=== PATIENT | male | born 1990 | race Caucasian/White ===

== ENCOUNTER 2016-04-20 18:03 | Inpatient (IN) | payer OTHER ==
[~2016-04-20] VITALS: Ht 172.7 cm; Wt 96.5 kg
[2016-04-20 19:09] LABS: MEAN CORPUSCULAR HEMOGLOBIN 28.7 pg (27.0-33.0); MEAN CORPUSCULAR HGB CONC 34.3 g/dl (32.0-36.5); MEAN CORPUSCULAR VOLUME 83.6 fl (80.0-96.0); RED CELL DISTRIBUTION WIDTH 12.7 % (11.5-14.5)
[2016-04-20 19:16] LABS: AMPHETAMINES LEVEL URINE NEGATIVE (NEGATIVE); BENZODIAZEPINES URINE NEGATIVE (NEGATIVE); COCAINE METABOLITE URINE NEGATIVE (NEGATIVE); CONTROL LINE INT CTR LINE PRESENT; METHADONE URINE NEGATIVE (NEGATIVE); OPIATES URINE NEGATIVE (NEGATIVE); TRICYCLIC ANTIDEPRESS URINE NEGATIVE (NEGATIVE)
[2016-04-20 19:33] LABS: ALBUMIN 4.5 GM/DL (3.2-5.2); ALBUMIN/GLOBULIN RATIO 1.36 (1.00-1.93); ALKALINE PHOSPHATASE 84 U/L (45-117); ALT/SGPT 80 U/L (12-78); ANION GAP 10 MEQ/L (8-16); AST/SGOT 29 U/L (15-37); BILIRUBIN,DIRECT 0.1 MG/DL (0.0-0.2); BILIRUBIN,TOTAL 0.3 MG/DL (0.2-1.0); BLOOD UREA NITROGEN 8 MG/DL (7-18); CALCIUM LEVEL 9.2 MG/DL (8.5-10.1); CARBON DIOXIDE LEVEL 27 MEQ/L (21-32); CHLORIDE LEVEL 105 MEQ/L (98-107); CREATININE FOR GFR 1.03 MG/DL (0.70-1.30); GLOMERULAR FILTRATION RATE > 60.0 (>60); GLUCOSE, FASTING 96 MG/DL (70-105); POTASSIUM SERUM 3.8 MEQ/L (3.5-5.1); SODIUM LEVEL 142 MEQ/L (136-145); TOTAL PROTEIN 7.8 GM/DL (6.4-8.2)
[2016-04-20] MEDS ORDERED: CELE20TA PO (21:12)
[2016-04-20] MEDS ORDERED: VITA1CHW10 PO (21:12)
[2016-04-20] MEDS ORDERED: MOM 30ML SUSPENSION UDC PO PRN (21:15)
[2016-04-20] MEDS ORDERED: ACETAMINOPHEN TAB 650MG DOSE (2X325MG) PO PRN (21:15)
[2016-04-20] MEDS ORDERED: traZODone 50 MG TAB PO PRN (21:15)
[2016-04-20] MEDS ORDERED: MAALOX 30 ML SUSP *UDC PO PRN (21:15)
--- NOTE | 2016-04-20 23:06 | EDDOCDS ---
Physician Documentation [facility] Name: Wesley Wilson Age: 26 yrs Sex: Male : 1990 Arrival Date: 04/20/2016 Time: 18:03 Bed BHU1 Private MD: Javier Carrion Disposition: 04/20/16 20:07 Hospitalization ordered by Benedicto Burden for Inpatient Admission. Preliminary diagnosis are Adjustment disorder with mixed anxiety and depressed mood, Suicidal ideations. - Bed requested for Admit. - Status is Inpatient Admission. rw1 - Condition is Stable. - Problem is an ongoing problem. - Symptoms are unchanged. Historical: - Allergies: No known drug Allergies; - Home Meds: 1. Celexa 20 mg Oral tab 1 tab once daily 2. Flomax 0.4 mg Oral cp24 1 cap once daily has not taken in awhile - PMHx: Anxiety; Depression; Urethral stricture; - PSHx: none; - Social history: Smoking status: Electronic cigarettes Patient uses street drugs, marijuana, prescription pills, No barriers to communication noted, The patient speaks fluent Maltese. - Family history: Not pertinent. - : The pt / caregiver states he / she is not on anticoagulants. Home medication list is obtained from the patient. - Exposure Risk Screening:: None identified. Vital Signs: 04/20 18:05 BP 149 / 84; Pulse 103; Resp 18 S; Temp 98.9(O); Pulse Ox 98% on R/A; Weight 99.79 kg / gr2 220 lbs (R); Height 5 ft. 8 in. (172.72 cm) (R); Pain 2/10; 23:02 BP 146 / 85; Pulse 67; Resp 16; Temp 97.1(T); Pulse Ox 97% on R/A; Pain 0/10; rw1 18:05 Body Mass Index 33.45 (99.79 kg, 172.72 cm) gr2 MDM: 18:26 Consult PFS/PSA/Yacht Captain ordered. ml6 18:26 Consult PFS/PSA/Yacht Captain: Patient's case requires discussion with on-call ml6 Psychiatrist ordered. 18:26 PSA/PFS to call Nursing Resistor Tester, to enter patient data on [place] Safe Act if patient ml6 involuntarily admitted or transferred for SI or HI ordered. 18:26 Confirm accurate psychiatric medication list and times of last dosage ordered. ml6 18:26 Detain Pt Until Medically/PFS Cleared ordered. ml6 18:26 Acetaminophen Level Ordered. EDMS 18:26 Basic Metabolic Profile Ordered. EDMS 18:26 Complete Blood Count Ordered. EDMS 18:26 Drug Eval Toxicology ED Only Ordered. EDMS 18:26 Ethyl Alcohol (ethanol) Ordered. EDMS 18:26 Liver Profile Ordered. EDMS 18:26 Salicylate Level Ordered. EDMS 18:26 Thyroid Stimulating Hormone Ordered. EDMS 19:58 Acetaminophen Level Reviewed. ke 19:58 Complete Blood Count Reviewed. ke 19:58 Drug Eval Toxicology ED Only Reviewed. ke 19:58 Liver Profile Reviewed. ke 19:58 Salicylate Level Reviewed. ke 19:58 Basic Metabolic Profile Reviewed. ke 19:58 Ethyl Alcohol (ethanol) Reviewed. ke 19:58 Thyroid Stimulating Hormone Reviewed. ke 20:04 BED REQUEST+ADM ordered. EDMS 20:52 Financial registration complete. zo 20:54 Consult PFS/PSA/Yacht Captain complete. jfb 20:54 Consult PFS/PSA/Yacht Captain: Patient's case requires discussion with on-call jfb Psychiatrist complete. 20:54 PSA/PFS to call Nursing Resistor Tester, to enter patient data [place] Safe [place] if patient jfb involuntarily admitted or transferred for SI or HI complete. 21:09 Admit to IMHU: ordered. EDMS 21:09 REGULAR DIET ordered. EDMS 21:52 [facility] Legal paperwork was scanned into [employer] and attached to record. jl 22:13 [facility] [place] Agreement was scanned into [employer] and attached to record. zo 22:21 [facility] Legal paperwork was scanned into [employer] and attached to record. jl Signatures: Dispatcher [employer] Debra Garg, RN RN Yoel Ruff PSA PSA jl Elsner, Karl, DIRECT MAIL CLERK DIRECT MAIL CLERK Arden Ferrari,LOCKER ATTENDANT LOCKER ATTENDANT rw1 Driss Ruiz Matthew, RN RN ml6 Joi West, JAMES alarcon The chart was reviewed and I authenticate all verbal orders and agree with the evaluation and treatment provided.Attachments: 22:13 [facility] [place] Agreement zo MTDD
--- NOTE | 2016-04-20 23:06 | EDDOCDS ---
Nurse's Notes [facility] Name: Wesley Wilson Age: 26 yrs Sex: Male : 1990 Arrival Date: 04/20/2016 Time: 18:03 Bed [facility] Private MD: Javier Carrion Diagnosis: Adjustment disorder with mixed anxiety and depressed mood;Suicidal ideations Presentation: 04/20 18:17 Presenting complaint: Patient states: since January he has been in and out of feeling kcs anxious and depressed. Has numerous suicidal ideations. Gets frustrated with others and has homicidal ideations but then turns the frustration back on himself. Mental Health Triage Level: Level 2: The patient displays active suicidal ideations. The patient displays active homicidal ideations. Adult Sepsis Screening: The patient does not have new or worsening altered mentation. Patient's respiratory rate is less than 22. Systolic blood pressure is greater than 100. Patient has a qSOFA score of 0- Negative Sepsis Screen. Suicide/Homicide risk assessment- The patient admits to and/or has been reported to be having suicidal ideations. The patient admits to and/or has been reported to be having homicidal ideations. The patient reports that he/she has not been admitted to an inpatient mental health facility in the last 30 days. The patient reports that he/she has a recent or current history of substance abuse. The patient reports that he/she has a prior history of suicide attempt and/or organized plan. The patient reports that he/she has not experienced a significant life altering event in the last 30 days. The patient reports that he/she has adequate social support. The patient reports he/she has significant chronic medical condition(s). Status: Patient is not a human services care specialist or dependent. Transition of care: patient was not received from another setting of care. Red Flag criteria, patient assessed and taken directly to a bed. 18:17 Acuity: BRITTA Level 3 kcs 18:17 Method Of Arrival: Walkin/Carried/Asstd kcs Triage Assessment: 18:20 General: Appears comfortable, well developed, well nourished, well groomed, Behavior is kcs cooperative, flat, pleasant, good eye contact. Pain: Denies pain. Pt Declines HIV testing. The patient is triaged at the bedside. See Assessment in Nurses Notes section of ED record. Neurological: Level of Consciousness is awake, alert. Respiratory: Airway is patent Respiratory effort is even, unlabored, Respiratory pattern is regular, symmetrical. Derm: Skin is intact, is healthy with good turgor, Skin is dry, Skin is normal. 18:23 General: does have chronic back and leg pain - also has pain in fingertips when he kcs tries to turn something like a doorknob. Historical: - Allergies: No known drug Allergies; - Home Meds: 1. Celexa 20 mg Oral tab 1 tab once daily 2. Flomax 0.4 mg Oral cp24 1 cap once daily has not taken in awhile - PMHx: Anxiety; Depression; Urethral stricture; - PSHx: none; - Social history: Smoking status: Electronic cigarettes Patient uses street drugs, marijuana, prescription pills, No barriers to communication noted, The patient speaks fluent Wallisian. - Family history: Not pertinent. - : The pt / caregiver states he / she is not on anticoagulants. Home medication list is obtained from the patient. - Exposure Risk Screening:: None identified. Screenin:02 Screening information is obtained from the patient. Fall risk: No risks identified. rw1 Assistance ADL's: requires no assistance with activities of daily living. Abuse/DV Screen: The patient / caregiver reports he/she is: not in a situation that causes fear, pain or injury. Nutritional screening: No deficits noted. Advance Directives: Currently, there is no health care proxy. home support is adequate. Assessment: 18:20 General: see triage assessment. rw1 19:20 General: Appears in no apparent distress, comfortable, Behavior is appropriate for age, rw1 cooperative. Neurological: Level of Consciousness is awake, alert, obeys commands, Oriented to person, place, time. Respiratory: Airway is patent Respiratory effort is even, unlabored. Derm: Skin is pink, warm & dry. normal. 20:10 Reassessment: Patient appears in no apparent distress at this time. awake resting on rw1 stretcher talking to family. Safety maintained will continue to monitor.. 21:04 Reassessment: Patient appears in no apparent distress at this time. continues resting rw1 on stretcher talking to family. Safety maintained will continue to monitor.. 22:00 General: Appears in no apparent distress, comfortable, Behavior is appropriate for age, rw1 cooperative, pleasant. Pain: Denies pain. Neurological: Level of Consciousness is awake, alert, obeys commands, Oriented to person, place, time. Respiratory: Airway is patent Respiratory effort is even, unlabored. Derm: Skin is pink, warm & dry. normal. 22:51 Reassessment: Patient appears in no apparent distress at this time. resting quietly on rw1 stretcher, safety maintained will monitor.. Mental Health Eval: 20:57 Status: The patient is not a human services care specialist or dependent. [facility]: The patient is not an established patient of [facility]. Referral Information: Evaluation referral is generated by the patient himself / herself. The patient was referred for evaluation because PT has been experiencing SI . Subjective: The patients chief complaint is PT states that he has been told for years that he may have Bipolar but he would become defensive. He currently feels that he may in fact have that condition and is concerned if he doesn't address it may harm himself. PT states since January 2016 he has noticed significant increase with his symptoms to include interrupted sleep, racing thoughts, mood swings to include anger, isolating and self sabotaging. PT states that he has avoided getting help as he was concerned about who would care for his 2 year old dog but his family has now offered to help. 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 I love that job" Last PT states was a very difficult day and he fought the desire to OD "for relief". PT is concerned that if he doesn't get help "something bad might happen". Delusions are denied. Patient's mood is anxious, hallucinations are states he will occasionally see shadows. Mental Health history: anxiety, depression, sleep disturbance, suicide attempt by PT states he has had multiple unreported suicide attempts in his lie time. He can remember putting a belt around his neck and frequent OD. Mental Health Admissions: None. Current Outpatient Mental Health Services: None. Current living environment is The patient currently lives with a family that assumed custody of him when he was 18. He feels the house is not stable and if he could find an affordable place that will accept his dog he would move.. Patient presents to Emergency Department with the following symptoms within the past 2 weeks: antisocial behavior, anxiety, erratic appetite depressed mood, hyperactivity, labile mood, panic attacks, poor concentration, sleep disturbance - erratic suicidal ideation with plan for pills. Substance abuse: Patient uses marijuana daily quit smoking two years ago and utilizes an E-cig. Mental status exam: Patients appearance is appropriate, Patient's behavior is cooperative, Speech is normal. Affect is appropriate. Mood is anxious. Hallucinations are denied. Appetite is erratic Memory is good. Energy level is normal. Content of thought is depressive. concerned for his future Thought process is intact. Cognitive level is oriented to person, place, time and situation Patient's insight is fair. Judgement is fair. Rapport with interviewer is good. Suicidal Ideation is denied. Homicidal ideation is denied. Disposition: Medically cleared for disposition by Heriberto RACHEL Psychiatric Consult is performed by phone with Dr Benedicto Burden MD. [facility] Admission Criteria: The patient is experiencing suicidal ideation. The patient requires continuous observation and/or control to protect self, others or property. The patient's care requires a multi-modal treatment plan under close supervision and coordination due to the complexity and severity of the patient's symptoms. Legal Status: Patient's legal status will be Emergency admission: 9.39. [place] Safe Act: [place] Safe Act is applicable to this patient. The patient poses a risk to self or other and the Nursing Carrier Driver has been notified. He/She will enter the patient's data. DSM-V Differential Diagnosis: Unspecified Depressive Disorder (F32.9). Awaiting: transfer to [facility]. Vital Signs: 18:05 BP 149 / 84; Pulse 103; Resp 18 S; Temp 98.9(O); Pulse Ox 98% on R/A; Weight 99.79 kg gr2 (R); Height 5 ft. 8 in. (172.72 cm) (R); Pain 2/10; 23:02 BP 146 / 85; Pulse 67; Resp 16; Temp 97.1(T); Pulse Ox 97% on R/A; Pain 0/10; rw1 18:05 Body Mass Index 33.45 (99.79 kg, 172.72 cm) gr2 Vitals: 18:05 Log In Time: April 20, 2016 at 18:05. RN notified that patient meets Red Flag gr2 criteria. ED Course: 18:05 Patient visited by Meche Fermin. gr2 18:05 Javier Carrion is Private Physician. gr2 18:05 Patient moved to Waiting gr2 18:07 Patient visited by Meche Fermin. gr2 18:07 Patient moved to [facility] kcs 18:19 Triage Initiated kcs 18:38 Patient visited by Narinder Arriaga. dpm 18:53 Patient visited by Narinder Arriaga. dpm 19:07 Patient visited by Narinder Arriaga. dpm 19:15 Patient visited by Narinder Arriaga. dpm 19:28 Patient visited by Mike Camargo. tr 19:37 Heriberto Barry FNP is PHCP. ke 19:37 Patient visited by Heriberto Barry FNP. ke 19:37 Patient visited by Heriberto Barry FNP. ke 19:47 Patient visited by Mike Camargo. tr 19:54 Arden Gonzalez LPN is Primary Nurse. rw1 20:03 Benedicto Burden MD is Hospitalizing Provider. ke 20:13 Patient visited by Mike Camargo. tr 20:47 Patient visited by Mike Camargo. tr 21:43 Patient visited by Mike Camargo. tr 21:52 E Legal paperwork was scanned into [employer] and attached to record. jl 21:59 Patient visited by Mike Camargo. tr 22:13 [facility] Payment Agreement was scanned into [employer] and attached to record. zo 22:14 Patient visited by Mike Camargo. tr 22:21 E Legal paperwork was scanned into [employer] and attached to record. jl 22:34 Patient visited by Mike Camargo. tr 22:44 Patient visited by Mike Camargo. tr 22:59 Patient visited by Mike Camargo. tr 23:02 The patient / caregiver is instructed regarding the plan of care and ED course. rw1 23:02 No IV's were initiated during this patient's visit. No procedures done that require rw1 assistance. Attachments: 22:21 [facility] Legal paperwork jl Order Results: Lab Order: Acetaminophen Level; SPEC'M 04/20/16 18:37 Test: ACETAMINOPHEN LEVEL; Value: < 2.0; Range: 10.0-30.0; Abnormal: Below low normal; Units: UG/ML; Status: F Lab Order: Basic Metabolic Profile; [facility] 04/20/16 18:37 Test: GLUCOSE, FASTING; Value: 96; Range: 70-105; Units: MG/DL; Status: F Test: BLOOD UREA NITROGEN; Value: 8; Range: 7-18; Units: MG/DL; Status: F Test: CREATININE FOR GFR; Value: 1.03; Range: 0.70-1.30; Units: MG/DL; Status: F Test: GLOMERULAR FILTRATION RATE; Value: > 60.0; Range: >60; Status: F Test: SODIUM LEVEL; Value: 142; Range: 136-145; Units: MEQ/L; Status: F Test: POTASSIUM SERUM; Value: 3.8; Range: 3.5-5.1; Units: MEQ/L; Status: F Test: CHLORIDE LEVEL; Value: 105; Range: 98-107; Units: MEQ/L; Status: F Test: CARBON DIOXIDE LEVEL; Value: 27; Range: 21-32; Units: MEQ/L; Status: F Test: ANION GAP; Value: 10; Range: 8-16; Units: MEQ/L; Status: F Test: CALCIUM LEVEL; Value: 9.2; Range: 8.5-10.1; Units: MG/DL; Status: F Test Note: ; Units are mL/min/1.73 m2 Chronic Kidney Disease Staging per NKF: Stage I & II GFR >=60 Normal to Mildly Decreased Stage III GFR 30-59 Moderately Decreased Stage IV GFR 15-29 Severely Decreased Stage V GFR <15 Very Little GFR Left ESRD GFR <15 on MONTESS[employer]I LEAD TEACHER Lab Order: Complete Blood Count; [facility] 04/20/16 18:37 Test: WHITE BLOOD COUNT; Value: 9.0; Range: 4.0-10.0; Units: K/mm3; Status: F Test: RED BLOOD COUNT; Value: 5.46; Range: 4.30-6.10; Units: M/mm3; Status: F Test: HEMOGLOBIN; Value: 15.7; Range: 14.0-18.0; Units: g/dl; Status: F Test: HEMATOCRIT; Value: 45.7; Range: 42.0-52.0; Units: %; Status: F Test: MEAN CORPUSCULAR VOLUME; Value: 83.6; Range: 80.0-96.0; Units: fl; Status: F Test: MEAN CORPUSCULAR HEMOGLOBIN; Value: 28.7; Range: 27.0-33.0; Units: pg; Status: F Test: MEAN CORPUSCULAR HGB CONC; Value: 34.3; Range: 32.0-36.5; Units: g/dl; Status: F Test: RED CELL DISTRIBUTION WIDTH; Value: 12.7; Range: 11.5-14.5; Units: %; Status: F Test: PLATELET COUNT, AUTOMATED; Value: 468; Range: 150-450; Abnormal: Above high normal; Units: k/mm3; Status: F Lab Order: Drug Eval Toxicology ED Only; SPEC'M 04/20/16 18:37 Test: AMPHETAMINES LEVEL URINE; Value: NEGATIVE; Range: NEGATIVE; Status: F Test: BARBITURATES URINE; Value: NEGATIVE; Range: NEGATIVE; Status: F Test: BENZODIAZEPINES URINE; Value: NEGATIVE; Range: NEGATIVE; Status: F Test: CANNABINOIDS URINE; Value: POSITIVE; Range: NEGATIVE; Abnormal: Above high normal; Status: F Test: COCAINE METABOLITE URINE; Value: NEGATIVE; Range: NEGATIVE; Status: F Test: METHADONE URINE; Value: NEGATIVE; Range: NEGATIVE; Status: F Test: OPIATES URINE; Value: NEGATIVE; Range: NEGATIVE; Status: F Test: TRICYCLIC ANTIDEPRESS URINE; Value: NEGATIVE; Range: NEGATIVE; Status: F Test Note: ; FALSE POSITIVE RESULTS CAN BE CAUSED BY THE USE OF PANTOPRAZOLE (PROTONIX). Lab Order: Ethyl Alcohol (ethanol); SPEC'M 04/20/16 18:37 Test: ETHYL ALCOHOL (ETHANOL); Value: < 0.003; Range: 0.000-0.010; Units: %; Status: F Lab Order: Liver Profile; SPEC'M 04/20/16 18:37 Test: AST/SGOT; Value: 29; Range: 15-37; Units: U/L; Status: F Test: ALT/SGPT; Value: 80; Range: 12-78; Abnormal: Above high normal; Units: U/L; Status: F Test: ALKALINE PHOSPHATASE; Value: 84; Range: 45-117; Units: U/L; Status: F Test: BILIRUBIN,TOTAL; Value: 0.3; Range: 0.2-1.0; Units: MG/DL; Status: F Test: BILIRUBIN,DIRECT; Value: 0.1; Range: 0.0-0.2; Units: MG/DL; Status: F Test: TOTAL PROTEIN; Value: 7.8; Range: 6.4-8.2; Units: GM/DL; Status: F Test: ALBUMIN; Value: 4.5; Range: 3.2-5.2; Units: GM/DL; Status: F Test: ALBUMIN/GLOBULIN RATIO; Value: 1.36; Range: 1.00-1.93; Status: F Lab Order: Salicylate Level; SPEC'M 04/20/16 18:37 Test: SALICYLATE LEVEL; Value: < 1.7; Range: 5.0-30.0; Abnormal: Below low normal; Units: MG/DL; Status: F Lab Order: Thyroid Stimulating Hormone; SPEC'M 04/20/16 18:37 Test: THYROID STIMULATING HORMONE; Value: 1.150; Range: 0.358-3.740; Units: uIU/ML; Status: F Outcome: 20:07 Decision to Hospitalize by Provider. ke 23:02 Discharge Assessment: Patient awake, alert and oriented x 3. No cognitive and/or rw1 functional deficits noted. Patient verbalized understanding of disposition instructions. patient administered narcotics - no. The following High Risk Discharge criteria are identified: Admitted to Psych accompanied by tech, via wheelchair, with chart. Condition: stable. No special radiology studies were completed. Property removed, inventory done, secured in belongings bag- given to [facility] staff. 23:05 Patient left the ED. rw1 Signatures: Debra Nicholas, RN RN Yoel Ruff PSA PSA jl Rasmussen, Tim tr Elsner, Karl, YARN FINISHER YARN FINISHER Arden Ferrari,SERVICE PERSON SERVICE PERSON rw1 Driss Ruiz Julie, PSA PSA jfb Marolf, Dustin dpm Raymond, Gainslee gr2 MTDD
[2016-04-20 23:23] VITALS: BP 143/88
[2016-04-21 06:00] VITALS: BP 114/59
[2016-04-21] MEDS ORDERED: CitaloPRAM (CeleXA) 20 MG TAB PO SCH (09:00)
--- NOTE | 2016-04-21 10:21 | HPEPDOC ---
Medical History and Physical Date of Admission Apr 20, 2016 at 23:23 History and Physical PCP: Dr Chichi Carrion ATTENDING: Dr. Shant Vu HPI: 26yoM admitted to [facility] for depressive disorder, being medically examined today. No acute medical complaints today. Denies any fevers, chills, weakness, fatigue, MAGUIRE, CP, SOB, cough, palpitations, abdominal pain, N/V/D or changes in bowel or bladder habits. 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 History of cocaine IV Drug Use: Denies Tattoos done unprofessionally: Denies FAMHX: Mother: Alive, diabetes Father: Alive, HIV Siblings: Alive, rheumatoid arthritis Children: None Unexpected deaths due to medical reasons: None. ROS: As noted in HPI, otherwise 11pt ROS of systems reviewed and unremarkable. PE: GEN: 26yoM, appears stated age. Well-nourished, well developed. No acute distress. Alert and oriented x 3. Pleasant, interactive. HEENT: Normocephalic, atraumatic. Pupils are equal, round, and reactive to light. Extraocular movements are intact. No nystagmus appreciated. Sclera are nonicteric. Conjunctiva without injection. Nose midline. Nasal turbinates without bogginess. EACs both patent BL. TMs both visualized and shin with good cone of light, no bulging or erythema. No facial asymmetry. Moist mucous membranes. Dentition fair. Pharynx pink and moist, no cobblestoning. Neck supple , trachea midline. No lymphadenopathy or thyromegaly appreciated. CHEST: Regular rate and rhythm, +S1, +S2 LUNGS: Clear to auscultation bilaterally. No wheezes, rales, or rhonchi. Breathing appears symmetric and easy. Patient is speaking in full sentences. No accessory muscle use. ABD: Round, soft, non-tender, non-distended. +Bowel sounds throughout. No rebound or guarding. No costovertebral angle tenderness. EXT: Pulses 2+ bilaterally dorsalis pedis and radial. No lower extremity edema appreciated. SKIN: [place], dry, warm. Capillary refill <2sec. No rashes. NEURO: Alert and oriented x 3. Cranial nerves III-XII are intact. No focal deficits appreciated. EKG: Pending. A&P: 26yoM admitted to [facility] for depressive disorder 1. Psych. Plan per Psychiatry. Obtain baseline EKG to assure the safety of psychiatric medications as they can prolong the QT interval. 2. Nicotine dependence. Patch available. 3. Elevated ALT. Recheck CMP in a.m. 4. Follow up with PCP on discharge. 5. Substance use. Per psychiatry. 6. Accompanied by staff member throughout exam, Killian Dietrich. Vital Signs Vital Signs Label Value Date Time Patient Temperature 95.8 degrees F 04/21/16 0600 Pulse 65 04/21/16 0600 Respiratory Rate 16 bpm 04/21/16 0600 Blood Pressure Assessment 114/59 (77) 04/21/16 0600 Laboratory Data Labs 24H Laboratory Tests 2 04/20/16 18:37: Acetaminophen Level < 2.0L, Aspartate Amino Transf (AST/SGOT) 29, Alanine Aminotransferase (ALT/SGPT) 80H, Alkaline Phosphatase 84, Total Bilirubin 0.3, Direct Bilirubin 0.1, Albumin 4.5, Albumin/Globulin Ratio 1.36, Anion Gap 10, Calcium Level 9.2, Ethyl Alcohol Level < 0.003, Glomerular Filtration Rate > 60.0, Salicylates Level < 1.7L, Thyroid Stimulating Hormone (TSH) 1.150, Total Protein 7.8, Urine Amphetamine Level NEGATIVE, Urine Benzodiazepines Screen NEGATIVE, Urine Cannabinoids POSITIVEH, Urine Cocaine Metabolite NEGATIVE, Urine Opiates Screen NEGATIVE, Urine Barbiturates, Qualitative NEGATIVE, Urine Methadone Screen NEGATIVE, Urine Tricyclic Antidepressants NEGATIVE CBC/BMP Laboratory Tests 04/20/16 18:37 Red Blood Count 5.46, Mean Corpuscular Volume 83.6, Mean Corpuscular Hemoglobin 28.7, Mean Corpuscular Hemoglobin Concent 34.3, Red Cell Distribution Width 12.7 Home Medications Scheduled Ascorbic Acid (Vitamin C Adult Gummies 125 mg) 1 Chw Chw 2 CHW PO BID Citalopram Hydrobromide (Celexa) 20 Mg Tab 20 MG PO DAILY Allergies Coded Allergies: No Known Allergies (Unverified , 04/20/16) Sara Jennings Apr 21, 2016 10:21
[2016-04-21] MEDS: NICOTINE 21MG/24HR 1 EA TRANSDERMAL TD SCH (10:23)
[2016-04-21 18:00] VITALS: BP 134/73
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
[2016-04-21] MEDS: QUEtiapine FUMARATE 50 MG TAB PO SCH (21:28)
[2016-04-21] MEDS: DIVALPROEX 250 MG TAB PO SCH (21:29)
[2016-04-22 06:45] VITALS: BP 114/71
[2016-04-22 07:42] LABS: ALBUMIN 4.3 GM/DL (3.2-5.2); ALBUMIN/GLOBULIN RATIO 1.34 (1.00-1.93); ALKALINE PHOSPHATASE 80 U/L (45-117); ALT/SGPT 95 U/L (12-78); ANION GAP 6 MEQ/L (8-16); AST/SGOT 37 U/L (15-37); BILIRUBIN,TOTAL 0.7 MG/DL (0.2-1.0); BLOOD UREA NITROGEN 16 MG/DL (7-18); CALCIUM LEVEL 9.3 MG/DL (8.5-10.1); CARBON DIOXIDE LEVEL 31 MEQ/L (21-32); CHLORIDE LEVEL 105 MEQ/L (98-107); CREATININE FOR GFR 1.05 MG/DL (0.70-1.30); GLOMERULAR FILTRATION RATE > 60.0 (>60); GLUCOSE, FASTING 87 MG/DL (70-105); POTASSIUM SERUM 4.3 MEQ/L (3.5-5.1); SODIUM LEVEL 142 MEQ/L (136-145); TOTAL PROTEIN 7.5 GM/DL (6.4-8.2)
[2016-04-22] MEDS: SERTRALINE HCL 25 MG TABLET PO SCH (08:02)
[2016-04-22] MEDS: NICOTINE 21MG/24HR 1 EA TRANSDERMAL TD SCH (08:02)
[2016-04-22] MEDS: DIVALPROEX 250 MG TAB PO SCH (08:02)
[2016-04-22 18:00] VITALS: BP 128/63
--- NOTE | 2016-04-22 18:45 | IPN ---
DATE: 04/22/2016 A 26-year-old male admitted for depression and suicidal ideation, significant mood swings, and symptoms compatible with bipolar disorder. MEDICATIONS: - Depakote 250 mg by mouth twice a day - sertraline 25 mg by mouth every morning - Seroquel 50 mg by mouth at bedtime SUBJECTIVE: "I feel about the same." OBJECTIVE: No major changes from yesterday at admission. Patient continues to report mood swings. He has been able to sleep better with the help of Seroquel. Patient is denying problems with the medication and is motivated for treatment. No evidence of psychotic symptoms. No auditory or visual hallucinations or delusions have been noticed. MENTAL STATUS EXAMINATION: Patient is dressed in [facility]. Patient has fair eye contact. Speech is slow and monotone. Mood is depressed and anxious. Affect is congruent with mood. No delusions or hallucinations. Memory is fair. Patient is fully oriented. Associations are intact. Thinking is logical. Thought content is appropriate. Patient is able to contract for safety in our unit. Denies suicidal or homicidal ideation during the interview. Insight and judgment are fair. ASSESSMENT: 1. Unspecified depressive disorder. 2. Rule out bipolar disorder. 3. Marijuana abuse. 4. Substance-induced mood disorder. PLAN: 1. Increase the Depakote to 250 mg by mouth every morning and 500 mg by mouth at bedtime. 2. Continue with sertraline 25 mg by mouth every morning. 3. Continue with Seroquel 50 mg by mouth at bedtime.
[2016-04-22] MEDS: DIVALPROEX 500 MG TAB PO SCH (21:20)
[2016-04-22] MEDS: QUEtiapine FUMARATE 50 MG TAB PO SCH (21:20)
--- NOTE | 2016-04-22 23:16 | ECGEPIP ---
Stationary ECG Study [facility] Test Date: 2016-04-22 Pat Name: PETE ARECHIGA Department: Room: [place] [address] Gender: M [employer] Lead: RAFIQ : 1990 Requested By: Sara Jennings Order Number: [id number] Reading MD: Sil Harvey Measurements Intervals [place] Rate: 71 P: 34 MN: 131 QRS: 80 QRSD: 86 T: 41 QT: 347 QTc: 379 Interpretive Statements SINUS RHYTHM WITH SINUS ARRHYTHMIA NO PRIOR Electronically Signed On 04-22-2016 23:15:48 EST by Sil Harvey
--- NOTE | 2016-04-23 00:06 | EDDOCDS ---
Nurse's Notes [facility] Name: Wesley Wilson Age: 26 yrs Sex: Male : 1990 Arrival Date: 04/20/2016 Time: 18:03 Bed [facility] Private MD: Javier Carrion Diagnosis: Adjustment disorder with mixed anxiety and depressed mood;Suicidal ideations Presentation: 04/20 18:17 Presenting complaint: Patient states: since January he has been in and out of feeling kcs anxious and depressed. Has numerous suicidal ideations. Gets frustrated with others and has homicidal ideations but then turns the frustration back on himself. Mental Health Triage Level: Level 2: The patient displays active suicidal ideations. The patient displays active homicidal ideations. Adult Sepsis Screening: The patient does not have new or worsening altered mentation. Patient's respiratory rate is less than 22. Systolic blood pressure is greater than 100. Patient has a qSOFA score of 0- Negative Sepsis Screen. Suicide/Homicide risk assessment- The patient admits to and/or has been reported to be having suicidal ideations. The patient admits to and/or has been reported to be having homicidal ideations. The patient reports that he/she has not been admitted to an inpatient mental health facility in the last 30 days. The patient reports that he/she has a recent or current history of substance abuse. The patient reports that he/she has a prior history of suicide attempt and/or organized plan. The patient reports that he/she has not experienced a significant life altering event in the last 30 days. The patient reports that he/she has adequate social support. The patient reports he/she has significant chronic medical condition(s). Status: Patient is not a consulting services associate or dependent. Transition of care: patient was not received from another setting of care. Red Flag criteria, patient assessed and taken directly to a bed. 18:17 Acuity: BRITTA Level 3 kcs 18:17 Method Of Arrival: Walkin/Carried/Asstd kcs Triage Assessment: 18:20 General: Appears comfortable, well developed, well nourished, well groomed, Behavior is kcs cooperative, flat, pleasant, good eye contact. Pain: Denies pain. Pt Declines HIV testing. The patient is triaged at the bedside. See Assessment in Nurses Notes section of ED record. Neurological: Level of Consciousness is awake, alert. Respiratory: Airway is patent Respiratory effort is even, unlabored, Respiratory pattern is regular, symmetrical. Derm: Skin is intact, is healthy with good turgor, Skin is dry, Skin is normal. 18:23 General: does have chronic back and leg pain - also has pain in fingertips when he kcs tries to turn something like a doorknob. Historical: - Allergies: No known drug Allergies; - Home Meds: 1. Celexa 20 mg Oral tab 1 tab once daily 2. Flomax 0.4 mg Oral cp24 1 cap once daily has not taken in awhile - PMHx: Anxiety; Depression; Urethral stricture; - PSHx: none; - Social history: Smoking status: Electronic cigarettes Patient uses street drugs, marijuana, prescription pills, No barriers to communication noted, The patient speaks fluent Iranian. - Family history: Not pertinent. - : The pt / caregiver states he / she is not on anticoagulants. Home medication list is obtained from the patient. - Exposure Risk Screening:: None identified. Screenin:02 Screening information is obtained from the patient. Fall risk: No risks identified. rw1 Assistance ADL's: requires no assistance with activities of daily living. Abuse/DV Screen: The patient / caregiver reports he/she is: not in a situation that causes fear, pain or injury. Nutritional screening: No deficits noted. Advance Directives: Currently, there is no health care proxy. home support is adequate. Assessment: 18:20 General: see triage assessment. rw1 19:20 General: Appears in no apparent distress, comfortable, Behavior is appropriate for age, rw1 cooperative. Neurological: Level of Consciousness is awake, alert, obeys commands, Oriented to person, place, time. Respiratory: Airway is patent Respiratory effort is even, unlabored. Derm: Skin is pink, warm & dry. normal. 20:10 Reassessment: Patient appears in no apparent distress at this time. awake resting on rw1 stretcher talking to family. Safety maintained will continue to monitor.. 21:04 Reassessment: Patient appears in no apparent distress at this time. continues resting rw1 on stretcher talking to family. Safety maintained will continue to monitor.. 22:00 General: Appears in no apparent distress, comfortable, Behavior is appropriate for age, rw1 cooperative, pleasant. Pain: Denies pain. Neurological: Level of Consciousness is awake, alert, obeys commands, Oriented to person, place, time. Respiratory: Airway is patent Respiratory effort is even, unlabored. Derm: Skin is pink, warm & dry. normal. 22:51 Reassessment: Patient appears in no apparent distress at this time. resting quietly on rw1 stretcher, safety maintained will monitor.. Mental Health Eval: 20:57 Status: The patient is not a consulting services associate or dependent. [facility] Behavioral Health: The patient is not an established patient of [facility] Behavioral Health. Referral Information: Evaluation referral is generated by the patient himself / herself. The patient was referred for evaluation because PT has been experiencing SI . Subjective: The patients chief complaint is PT states that he has been told for years that he may have Bipolar but he would become defensive. He currently feels that he may in fact have that condition and is concerned if he doesn't address it may harm himself. PT states since January 2016 he has noticed significant increase with his symptoms to include interrupted sleep, racing thoughts, mood swings to include anger, isolating and self sabotaging. PT states that he has avoided getting help as he was concerned about who would care for his 2 year old dog but his family has now offered to help. 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 I love that job" Last PT states was a very difficult day and he fought the desire to OD "for relief". PT is concerned that if he doesn't get help "something bad might happen". Delusions are denied. Patient's mood is anxious, hallucinations are states he will occasionally see shadows. Mental Health history: anxiety, depression, sleep disturbance, suicide attempt by PT states he has had multiple unreported suicide attempts in his lie time. He can remember putting a belt around his neck and frequent OD. Mental Health Admissions: None. Current Outpatient Mental Health Services: None. Current living environment is The patient currently lives with a family that assumed custody of him when he was 18. He feels the house is not stable and if he could find an affordable place that will accept his dog he would move.. Patient presents to Emergency Department with the following symptoms within the past 2 weeks: antisocial behavior, anxiety, erratic appetite depressed mood, hyperactivity, labile mood, panic attacks, poor concentration, sleep disturbance - erratic suicidal ideation with plan for pills. Substance abuse: Patient uses marijuana daily quit smoking two years ago and utilizes an E-cig. Mental status exam: Patients appearance is appropriate, Patient's behavior is cooperative, Speech is normal. Affect is appropriate. Mood is anxious. Hallucinations are denied. Appetite is erratic Memory is good. Energy level is normal. Content of thought is depressive. concerned for his future Thought process is intact. Cognitive level is oriented to person, place, time and situation Patient's insight is fair. Judgement is fair. Rapport with interviewer is good. Suicidal Ideation is denied. Homicidal ideation is denied. Disposition: Medically cleared for disposition by Heriberto RACHEL Psychiatric Consult is performed by phone with Dr Benedicto Burden MD. [facility] Admission Criteria: The patient is experiencing suicidal ideation. The patient requires continuous observation and/or control to protect self, others or property. The patient's care requires a multi-modal treatment plan under close supervision and coordination due to the complexity and severity of the patient's symptoms. Legal Status: Patient's legal status will be Emergency admission: 9.39. [place] Safe Act: [place] Safe Act is applicable to this patient. The patient poses a risk to self or other and the Nursing Machine Ii Engraver has been notified. He/She will enter the patient's data. DSM-V Differential Diagnosis: Unspecified Depressive Disorder (F32.9). Awaiting: transfer to [facility]. 04/21 11:02 Insurance Pre-Certification: Carlos Card at [place], pending reference # is [id number]. Vital Signs: 04/20 18:05 BP 149 / 84; Pulse 103; Resp 18 S; Temp 98.9(O); Pulse Ox 98% on R/A; Weight 99.79 kg gr2 (R); Height 5 ft. 8 in. (172.72 cm) (R); Pain 2/10; 23:02 BP 146 / 85; Pulse 67; Resp 16; Temp 97.1(T); Pulse Ox 97% on R/A; Pain 0/10; rw1 18:05 Body Mass Index 33.45 (99.79 kg, 172.72 cm) gr2 Vitals: 18:05 Log In Time: April 20, 2016 at 18:05. RN notified that patient meets Red Flag gr2 criteria. ED Course: 18:05 Patient visited by Meche Fermin. gr2 18:05 Javier Carrion is Private Physician. gr2 18:05 Patient moved to Waiting gr2 18:07 Patient visited by Meche Fermin. gr2 18:07 Patient moved to [facility] kcs 18:19 Triage Initiated kcs 18:38 Patient visited by Narinder Arriaga. dpm 18:53 Patient visited by Narinder Arriaga. dpm 19:07 Patient visited by Narinder Arriaga. dpm 19:15 Patient visited by Narinder Arriaga. dpm 19:28 Patient visited by Mike Camargo. tr 19:37 Heriberto Barry FNP is PHCP. ke 19:37 Patient visited by Heriberto Barry FNP. ke 19:37 Patient visited by Heriberto Barry FNP. ke 19:47 Patient visited by Mike Camargo. tr 19:54 Arden Gonzalez LPN is Primary Nurse. rw1 20:03 Benedicto Burden MD is Hospitalizing Provider. ke 20:13 Patient visited by Mike Camargo. tr 20:47 Patient visited by Mike Camargo. tr 21:43 Patient visited by Mike Camargo. tr 21:52 [facility] Legal paperwork was scanned into [employer] and attached to record. jl 21:59 Patient visited by Mike Camargo. tr 22:13 [facility] Payment Agreement was scanned into [employer] and attached to record. zo 22:14 Patient visited by Mike Camargo. tr 22:21 [facility] Legal paperwork was scanned into [employer] and attached to record. jl 22:34 Patient visited by Mike Camargo. tr 22:44 Patient visited by Mike Camargo. tr 22:59 Patient visited by Mike Camargo. tr 23:02 The patient / caregiver is instructed regarding the plan of care and ED course. rw1 23:02 No IV's were initiated during this patient's visit. No procedures done that require rw1 assistance. 04/21 11:35 T-Sheet-- Draft Copy was scanned into [employer] and attached to record. gb Attachments: 22:21 [facility] Legal paperwork jl Order Results: Lab Order: Acetaminophen Level; SPEC'M 04/20/16 18:37 Test: ACETAMINOPHEN LEVEL; Value: < 2.0; Range: 10.0-30.0; Abnormal: Below low normal; Units: UG/ML; Status: F Lab Order: Basic Metabolic Profile; SPEC'M 04/20/16 18:37 Test: GLUCOSE, FASTING; Value: 96; Range: 70-105; Units: MG/DL; Status: F Test: BLOOD UREA NITROGEN; Value: 8; Range: 7-18; Units: MG/DL; Status: F Test: CREATININE FOR GFR; Value: 1.03; Range: 0.70-1.30; Units: MG/DL; Status: F Test: GLOMERULAR FILTRATION RATE; Value: > 60.0; Range: >60; Status: F Test: SODIUM LEVEL; Value: 142; Range: 136-145; Units: MEQ/L; Status: F Test: POTASSIUM SERUM; Value: 3.8; Range: 3.5-5.1; Units: MEQ/L; Status: F Test: CHLORIDE LEVEL; Value: 105; Range: 98-107; Units: MEQ/L; Status: F Test: CARBON DIOXIDE LEVEL; Value: 27; Range: 21-32; Units: MEQ/L; Status: F Test: ANION GAP; Value: 10; Range: 8-16; Units: MEQ/L; Status: F Test: CALCIUM LEVEL; Value: 9.2; Range: 8.5-10.1; Units: MG/DL; Status: F Test Note: ; Units are mL/min/1.73 m2 Chronic Kidney Disease Staging per NKF: Stage I & II GFR >=60 Normal to Mildly Decreased Stage III GFR 30-59 Moderately Decreased Stage IV GFR 15-29 Severely Decreased Stage V GFR <15 Very Little GFR Left ESRD GFR <15 on UNDERWRITING CLERKS SUPERVISOR Lab Order: Complete Blood Count; SPEC'M 04/20/16 18:37 Test: WHITE BLOOD COUNT; Value: 9.0; Range: 4.0-10.0; Units: K/mm3; Status: F Test: RED BLOOD COUNT; Value: 5.46; Range: 4.30-6.10; Units: M/mm3; Status: F Test: HEMOGLOBIN; Value: 15.7; Range: 14.0-18.0; Units: g/dl; Status: F Test: HEMATOCRIT; Value: 45.7; Range: 42.0-52.0; Units: %; Status: F Test: MEAN CORPUSCULAR VOLUME; Value: 83.6; Range: 80.0-96.0; Units: fl; Status: F Test: MEAN CORPUSCULAR HEMOGLOBIN; Value: 28.7; Range: 27.0-33.0; Units: pg; Status: F Test: MEAN CORPUSCULAR HGB CONC; Value: 34.3; Range: 32.0-36.5; Units: g/dl; Status: F Test: RED CELL DISTRIBUTION WIDTH; Value: 12.7; Range: 11.5-14.5; Units: %; Status: F Test: PLATELET COUNT, AUTOMATED; Value: 468; Range: 150-450; Abnormal: Above high normal; Units: k/mm3; Status: F Lab Order: Drug Eval Toxicology ED Only; SPEC'M 04/20/16 18:37 Test: AMPHETAMINES LEVEL URINE; Value: NEGATIVE; Range: NEGATIVE; Status: F Test: BARBITURATES URINE; Value: NEGATIVE; Range: NEGATIVE; Status: F Test: BENZODIAZEPINES URINE; Value: NEGATIVE; Range: NEGATIVE; Status: F Test: CANNABINOIDS URINE; Value: POSITIVE; Range: NEGATIVE; Abnormal: Above high normal; Status: F Test: COCAINE METABOLITE URINE; Value: NEGATIVE; Range: NEGATIVE; Status: F Test: METHADONE URINE; Value: NEGATIVE; Range: NEGATIVE; Status: F Test: OPIATES URINE; Value: NEGATIVE; Range: NEGATIVE; Status: F Test: TRICYCLIC ANTIDEPRESS URINE; Value: NEGATIVE; Range: NEGATIVE; Status: F Test Note: ; FALSE POSITIVE RESULTS CAN BE CAUSED BY THE USE OF PANTOPRAZOLE (PROTONIX). Lab Order: Ethyl Alcohol (ethanol); SPEC'M 04/20/16 18:37 Test: ETHYL ALCOHOL (ETHANOL); Value: < 0.003; Range: 0.000-0.010; Units: %; Status: F Lab Order: Liver Profile; SPEC'M 04/20/16 18:37 Test: AST/SGOT; Value: 29; Range: 15-37; Units: U/L; Status: F Test: ALT/SGPT; Value: 80; Range: 12-78; Abnormal: Above high normal; Units: U/L; Status: F Test: ALKALINE PHOSPHATASE; Value: 84; Range: 45-117; Units: U/L; Status: F Test: BILIRUBIN,TOTAL; Value: 0.3; Range: 0.2-1.0; Units: MG/DL; Status: F Test: BILIRUBIN,DIRECT; Value: 0.1; Range: 0.0-0.2; Units: MG/DL; Status: F Test: TOTAL PROTEIN; Value: 7.8; Range: 6.4-8.2; Units: GM/DL; Status: F Test: ALBUMIN; Value: 4.5; Range: 3.2-5.2; Units: GM/DL; Status: F Test: ALBUMIN/GLOBULIN RATIO; Value: 1.36; Range: 1.00-1.93; Status: F Lab Order: Salicylate Level; SPEC'M 04/20/16 18:37 Test: SALICYLATE LEVEL; Value: < 1.7; Range: 5.0-30.0; Abnormal: Below low normal; Units: MG/DL; Status: F Lab Order: Thyroid Stimulating Hormone; SPEC'M 04/20/16 18:37 Test: THYROID STIMULATING HORMONE; Value: 1.150; Range: 0.358-3.740; Units: uIU/ML; Status: F Outcome: 04/20 20:07 Decision to Hospitalize by Provider. ke 23:02 Discharge Assessment: Patient awake, alert and oriented x 3. No cognitive and/or rw1 functional deficits noted. Patient verbalized understanding of disposition instructions. patient administered narcotics - no. The following High Risk Discharge criteria are identified: Admitted to Psych accompanied by tech, via wheelchair, with chart. Condition: stable. No special radiology studies were completed. Property removed, inventory done, secured in belongings bag- given to [facility] staff. 23:05 Patient left the ED. rw1 Signatures: Debra Nicholas, RN RN Homar Fregoso PSA PSA Yoel Trimble, PSA PSA jl Dixie Carter, Reg Reg gb Camargo, Mike tr Heriberto Barry, COVERSTITCH MACHINE OPERATOR COVERSTITCH MACHINE OPERATOR Arden Ferrari LPN LPN rw1 Driss Ruiz Julie, JAMES PSA Narinder Hill dpMeche Nichols2 Chart Complete MTDD
--- NOTE | 2016-04-23 00:06 | EDDOCDS ---
Physician Documentation [facility] Name: Wesley Wilson Age: 26 yrs Sex: Male : 1990 Arrival Date: 04/20/2016 Time: 18:03 Bed BHU1 Private MD: Javier Carrion Disposition: 04/20/16 20:07 Hospitalization ordered by Benedicto Burden for Inpatient Admission. Preliminary diagnosis are Adjustment disorder with mixed anxiety and depressed mood, Suicidal ideations. - Bed requested for Admit. - Status is Inpatient Admission. rw1 - Condition is Stable. - Problem is an ongoing problem. - Symptoms are unchanged. Historical: - Allergies: No known drug Allergies; - Home Meds: 1. Celexa 20 mg Oral tab 1 tab once daily 2. Flomax 0.4 mg Oral cp24 1 cap once daily has not taken in awhile - PMHx: Anxiety; Depression; Urethral stricture; - PSHx: none; - Social history: Smoking status: Electronic cigarettes Patient uses street drugs, marijuana, prescription pills, No barriers to communication noted, The patient speaks fluent Pakistani. - Family history: Not pertinent. - : The pt / caregiver states he / she is not on anticoagulants. Home medication list is obtained from the patient. - Exposure Risk Screening:: None identified. Vital Signs: 04/20 18:05 BP 149 / 84; Pulse 103; Resp 18 S; Temp 98.9(O); Pulse Ox 98% on R/A; Weight 99.79 kg / gr2 220 lbs (R); Height 5 ft. 8 in. (172.72 cm) (R); Pain 2/10; 23:02 BP 146 / 85; Pulse 67; Resp 16; Temp 97.1(T); Pulse Ox 97% on R/A; Pain 0/10; rw1 18:05 Body Mass Index 33.45 (99.79 kg, 172.72 cm) gr2 MDM: 18:26 Consult PFS/PSA/Front End Alignment Specialist ordered. ml6 18:26 Consult PFS/PSA/Front End Alignment Specialist: Patient's case requires discussion with on-call ml6 Psychiatrist ordered. 18:26 PSA/PFS to call Nursing Specialist Field Engineer, to enter patient data on [place] Safe Act if patient ml6 involuntarily admitted or transferred for SI or HI ordered. 18:26 Confirm accurate psychiatric medication list and times of last dosage ordered. ml6 18:26 Detain Pt Until Medically/PFS Cleared ordered. ml6 18:26 Acetaminophen Level Ordered. EDMS 18:26 Basic Metabolic Profile Ordered. EDMS 18:26 Complete Blood Count Ordered. EDMS 18:26 Drug Eval Toxicology ED Only Ordered. EDMS 18:26 Ethyl Alcohol (ethanol) Ordered. EDMS 18:26 Liver Profile Ordered. EDMS 18:26 Salicylate Level Ordered. EDMS 18:26 Thyroid Stimulating Hormone Ordered. EDMS 19:58 Acetaminophen Level Reviewed. ke 19:58 Complete Blood Count Reviewed. ke 19:58 Drug Eval Toxicology ED Only Reviewed. ke 19:58 Liver Profile Reviewed. ke 19:58 Salicylate Level Reviewed. ke 19:58 Basic Metabolic Profile Reviewed. ke 19:58 Ethyl Alcohol (ethanol) Reviewed. ke 19:58 Thyroid Stimulating Hormone Reviewed. ke 20:04 BED REQUEST+ADM ordered. EDMS 20:52 Financial registration complete. zo 20:54 Consult PFS/PSA/Front End Alignment Specialist complete. jfb 20:54 Consult PFS/PSA/Front End Alignment Specialist: Patient's case requires discussion with on-call jfb Psychiatrist complete. 20:54 PSA/PFS to call Nursing Specialist Field Engineer, to enter patient data on [place] Safe Act if patient jfb involuntarily admitted or transferred for SI or HI complete. 21:09 Admit to IMHU: ordered. EDMS 21:09 REGULAR DIET ordered. EDMS 21:52 [facility] Legal paperwork was scanned into [employer] and attached to record. jl 22:13 [facility] Payment Agreement was scanned into [employer] and attached to record. zo 22:21 [facility] Legal paperwork was scanned into [employer] and attached to record. jl 04/21 11:35 T-Sheet-- Draft Copy was scanned into [employer] and attached to record. gb Signatures: Dispatcher [employer] EDMS Debra Nicholas, RN RN Yoel Ruff, PSA PSA Dixie Cool, Reg Reg gb Heriberto Barry, POWER GENERATION TURBINE ROOM OPERATOR POWER GENERATION TURBINE ROOM OPERATOR Arden Ferrari,WEATHERIZATION AND HOUSING INSPECTOR WEATHERIZATION AND HOUSING INSPECTOR rw1 Driss Ruiz Matthew, RN RN ml6 Joi West, PSA JAMES alarcon The chart was reviewed and I authenticate all verbal orders and agree with the evaluation and treatment provided.Attachments: 22:13 [facility] Payment Agreement zo 04/21 11:35 T-Sheet-- Draft Copy gb Chart Complete MTDD
--- NOTE | 2016-04-23 00:06 | EDDOCDS ---
Physician Documentation [facility] Name: Wesley Wilson Age: 26 yrs Sex: Male : 1990 Arrival Date: 04/20/2016 Time: 18:03 Bed BHU1 Private MD: Javier Carrion Disposition: 04/20/16 20:07 Hospitalization ordered by Benedicto Burden for Inpatient Admission. Preliminary diagnosis are Adjustment disorder with mixed anxiety and depressed mood, Suicidal ideations. - Bed requested for Admit. - Status is Inpatient Admission. rw1 - Condition is Stable. - Problem is an ongoing problem. - Symptoms are unchanged. Historical: - Allergies: No known drug Allergies; - Home Meds: 1. Celexa 20 mg Oral tab 1 tab once daily 2. Flomax 0.4 mg Oral cp24 1 cap once daily has not taken in awhile - PMHx: Anxiety; Depression; Urethral stricture; - PSHx: none; - Social history: Smoking status: Electronic cigarettes Patient uses street drugs, marijuana, prescription pills, No barriers to communication noted, The patient speaks fluent [place]an. - Family history: Not pertinent. - : The pt / caregiver states he / she is not on anticoagulants. Home medication list is obtained from the patient. - Exposure Risk Screening:: None identified. Vital Signs: 04/20 18:05 BP 149 / 84; Pulse 103; Resp 18 S; Temp 98.9(O); Pulse Ox 98% on R/A; Weight 99.79 kg / gr2 220 lbs (R); Height 5 ft. 8 in. (172.72 cm) (R); Pain 2/10; 23:02 BP 146 / 85; Pulse 67; Resp 16; Temp 97.1(T); Pulse Ox 97% on R/A; Pain 0/10; rw1 18:05 Body Mass Index 33.45 (99.79 kg, 172.72 cm) gr2 MDM: 18:26 Consult PFS/PSA/Household Manager ordered. ml6 18:26 Consult PFS/PSA/Household Manager: Patient's case requires discussion with on-call ml6 Psychiatrist ordered. 18:26 PSA/PFS to call Nursing Electron Beam Operator, to enter patient data on [place] Safe Act if patient ml6 involuntarily admitted or transferred for SI or HI ordered. 18:26 Confirm accurate psychiatric medication list and times of last dosage ordered. ml6 18:26 Detain Pt Until Medically/PFS Cleared ordered. ml6 18:26 Acetaminophen Level Ordered. EDMS 18:26 Basic Metabolic Profile Ordered. EDMS 18:26 Complete Blood Count Ordered. EDMS 18:26 Drug Eval Toxicology ED Only Ordered. EDMS 18:26 Ethyl Alcohol (ethanol) Ordered. EDMS 18:26 Liver Profile Ordered. EDMS 18:26 Salicylate Level Ordered. EDMS 18:26 Thyroid Stimulating Hormone Ordered. EDMS 19:58 Acetaminophen Level Reviewed. ke 19:58 Complete Blood Count Reviewed. ke 19:58 Drug Eval Toxicology ED Only Reviewed. ke 19:58 Liver Profile Reviewed. ke 19:58 Salicylate Level Reviewed. ke 19:58 Basic Metabolic Profile Reviewed. ke 19:58 Ethyl Alcohol (ethanol) Reviewed. ke 19:58 Thyroid Stimulating Hormone Reviewed. ke 20:04 BED REQUEST+ADM ordered. EDMS 20:52 Financial registration complete. zo 20:54 Consult PFS/PSA/Household Manager complete. jfb 20:54 Consult PFS/PSA/Household Manager: Patient's case requires discussion with on-call jfb Psychiatrist complete. 20:54 PSA/PFS to call Nursing Electron Beam Operator, to enter patient data [place] Safe [place] if patient jfb involuntarily admitted or transferred for SI or HI complete. 21:09 Admit to IMHU: ordered. EDMS 21:09 REGULAR DIET ordered. EDMS 21:52 [facility] Legal paperwork was scanned into [employer] and attached to record. jl 22:13 [facility] Payment Agreement was scanned into [employer] and attached to record. zo 22:21 [facility] Legal paperwork was scanned into [employer] and attached to record. jl 04/21 11:35 T-Sheet-- Draft Copy was scanned into [employer] and attached to record. gb Signatures: Dispatcher [employer] EDMS Dbera Nicholas, RN RN Yoel Ruff, PSA PSA Dixie Cool, Reg Reg gb Heriberto Barry, SEAT MENDER SEAT MENDER Arden Ferrari,LOCOMOTIVE OILER LOCOMOTIVE OILER rw1 Driss Ruiz Matthew, RN RN ml6 Joi West, PSA JAMES alarcon The chart was reviewed and I authenticate all verbal orders and agree with the evaluation and treatment provided.Attachments: 22:13 [facility] [place] Payment Agreement zo 04/21 11:35 T-Sheet-- Draft Copy gb Chart Complete MTDD
[2016-04-23 06:45] VITALS: BP 147/71
[2016-04-23] MEDS: DIVALPROEX 250 MG TAB PO SCH (08:35)
[2016-04-23] MEDS: NICOTINE 21MG/24HR 1 EA TRANSDERMAL TD SCH (08:35)
[2016-04-23] MEDS: SERTRALINE HCL 25 MG TABLET PO SCH (08:36)
--- NOTE | 2016-04-23 11:41 | REP ---
Right upper quadrant sonography: History: Elevated liver function studies. Comparison study: No comparison study Findings: Scanning through the right upper quadrant of the abdomen demonstrates a normal sized, thin-walled gallbladder without evidence of stone or polyp. Common bile duct is normal measuring and zero point through cm in greatest diameter. No focal liver lesion is seen. There is evidence of fatty infiltration of the liver diffusely. Areas of sparing are seen near the gallbladder. Liver size is normal. No pancreatic abnormality is observed. No right renal abnormality is seen. There is no evidence of ascites. The right kidney measures right knee 12.2 x 5.8 x 4.4 cm. Impression: Evidence of fatty infiltration of the liver, otherwise negative right upper quadrant sonography. Signed by Vince Edgar MD 04/23/2016 11:34 A
--- NOTE | 2016-04-23 17:14 | IPN ---
DATE: 04/23/2016 26-year-old male admitted with symptoms of depression and suicidal ideation, significant mood swings, and other symptoms compatible with bipolar disorder. MEDICATIONS: - Depakote 250 mg by mouth in the morning and 500 mg by mouth at night - Zoloft 25 mg by mouth in the morning - Seroquel 50 mg by mouth at night SUBJECTIVE: "I feel better." OBJECTIVE: The patient starts requesting to be discharged, says that he misses his dogs and does not like to be in the hospital for a longer time; however, he continues to be labile, at times his eyes get watery. He was upset this morning when he was notified that an ultrasound was going to be done because his liver function test is elevated. The patient continues having mood swings and being on an emotional roller coaster. No evidence of auditory or visual hallucinations. Denies side effects from the medications. MENTAL STATUS EXAMINATION: The patient is dressed in [facility], has fair eye contact. Speech is low and monotone. Mood is depressed and anxious. Affect is congruent. No delusions or hallucinations. The patient is fully oriented. Associations are intact. Thinking is logical. Thought content is appropriate. The patient is able to contract for safety in the unit. Denies suicidal or homicidal ideation, but he starts to be focused on discharge and may be minimizing. Insight and judgment fair. ASSESSMENT: 1. Unspecified depressive disorder. 2. Rule out bipolar disorder. 3. Marijuana abuse. 4. Substance induced mood disorder. PLAN: 1. Continue with Depakote 250 mg in the morning and 500 mg by mouth at night. 2. Continue with sertraline 25 mg by mouth in the morning. 3. Continue with Seroquel 50 mg by mouth at night.
[2016-04-23 18:00] VITALS: BP 137/74
[2016-04-23] MEDS: QUEtiapine FUMARATE 50 MG TAB PO SCH (21:14)
[2016-04-23] MEDS: DIVALPROEX 500 MG TAB PO SCH (21:15)
[2016-04-24 06:33] VITALS: BP 109/57
[2016-04-24 07:39] LABS: ALBUMIN 4.3 GM/DL (3.2-5.2); ALBUMIN/GLOBULIN RATIO 1.39 (1.00-1.93); ALKALINE PHOSPHATASE 81 U/L (45-117); ALT/SGPT 101 U/L (12-78); ANION GAP 9 MEQ/L (8-16); AST/SGOT 42 U/L (15-37); BILIRUBIN,TOTAL 0.5 MG/DL (0.2-1.0); BLOOD UREA NITROGEN 15 MG/DL (7-18); CALCIUM LEVEL 9.3 MG/DL (8.5-10.1); CARBON DIOXIDE LEVEL 29 MEQ/L (21-32); CHLORIDE LEVEL 104 MEQ/L (98-107); CREATININE FOR GFR 1.08 MG/DL (0.70-1.30); GLOMERULAR FILTRATION RATE > 60.0 (>60); GLUCOSE, FASTING 95 MG/DL (70-105); POTASSIUM SERUM 4.3 MEQ/L (3.5-5.1); SODIUM LEVEL 142 MEQ/L (136-145); TOTAL PROTEIN 7.4 GM/DL (6.4-8.2)
[2016-04-24] MEDS: SERTRALINE HCL 25 MG TABLET PO SCH (08:11)
[2016-04-24] MEDS: DIVALPROEX 250 MG TAB PO SCH (08:11)
[2016-04-24] MEDS: NICOTINE 21MG/24HR 1 EA TRANSDERMAL TD SCH (08:11)
[2016-04-24] MEDS ORDERED: traZODone 25MG PER 1/2 TABLET PO PRN (11:00)
--- NOTE | 2016-04-24 11:29 | IPNPDOC ---
Assessment/Plan Date Seen The patient was seen on 04/24/16. Problems Problems: (1) LFT elevation Status: Acute Problem Text: * LFTs are noted to be trending upward. * Right upper quadrant ultrasound noted with fatty infiltration of the liver. * Caution with medications that are metabolized through the liver. Of note patient is not noted to be on Depakote prior to admission. * Recheck CMP in a.m. * Check hepatitis profile. Plan / VTE VTE Prophylaxis Ordered?: No (ambulatory) Subjective Review of Systems CC/HPI The patient is a 26-year-old male admitted with a reason for visit of Depressive D/O. Events since last encounter Evaluating patient in regards to elevated LFTs. Patient with no new complaints. Objective Physical Examination General Exam: Positive: Alert Eye Exam: Positive: PERRLA Chest Exam: Positive: Clear to auscultation, Normal air movement Heart Exam: Positive: Normal S1, Normal S2, Rate Normal, Regular Rhythm, Negative: Murmurs, Rubs Skin Exam: Positive: Nl turgor and temperature Neuro Exam: Positive: Normal Gait Vital Signs/I&O Vital Signs Date Time Temp Pulse Resp B/P Pulse Ox O2 Delivery O2 Flow Rate FiO2 04/24/16 06:33 96.7 61 18 109/57 Laboratory Data Labs 24H Laboratory Tests 2 04/24/16 06:37: Blood Urea Nitrogen 15, Creatinine 1.08, Sodium Level 142, Potassium Level 4.3, Chloride Level 104, Carbon Dioxide Level 29, Calcium Level 9.3, Aspartate Amino Transf (AST/SGOT) 42H, Alanine Aminotransferase (ALT/SGPT) 101H, Alkaline Phosphatase 81, Total Bilirubin 0.5, Total Protein 7.4, Albumin 4.3, Albumin/ Globulin Ratio 1.39, Anion Gap 9, Glomerular Filtration Rate > 60.0 CBC/BMP Laboratory Tests 04/24/16 06:37 Calcium Level 9.3, Aspartate Amino Transf (AST/SGOT) 42 H, Alanine Aminotransferase (ALT/SGPT) 101 H, Alkaline Phosphatase 81, Total Bilirubin 0.5 , Total Protein 7.4, Albumin 4.3 Sara Jennings Apr 24, 2016 11:29
[2016-04-24 18:00] VITALS: BP 142/71
--- NOTE | 2016-04-24 18:35 | IPN ---
DATE: 04/24/2016 HISTORY: A 26-year-old male admitted with diagnosis of depression and suicidal ideation, with significant mood swings and other symptoms compatible with bipolar disorder. MEDICATIONS: - Depakote 250 mg by mouth every morning and 500 mg by mouth at bedtime - Zoloft 25 mg by mouth every morning - Seroquel 50 mg by mouth at bedtime SUBJECTIVE: "I feel less angry and impulsive." OBJECTIVE: The patient is improving slowly. The patient states that in the past, he would have blown up easily and he probably could not tolerate to stay closed in a unit as he has been in the hospital. The patient says that he is interacting better with other patients. The patient's mood is improving. The patient is able to sleep well with the help of medication. There is no evidence of psychotic symptoms. No auditory or visual hallucinations or delusions. The patient's liver function test has increased since he was started on Depakote, and his liver ultrasound has shown fatty liver disease. Therefore, we will discuss this issue with the patient and probably will have to change his medication. MENTAL STATUS EXAMINATION: The patient dressed in [facility]. Has fair eye contact. Speech is slow and monotone. Mood is depressed and anxious but improving. Affect is congruent with mood. No delusions or hallucinations. The patient is fully oriented. Associations are intact. Thinking is logical. Thought content is appropriate. The patient is able to contract for safety. Denies suicidal or homicidal ideations. Insight and judgment are fair. ASSESSMENT: 1. Unspecified depressive disorder. 2. Rule out bipolar disorder. 3. Marijuana abuse. 4. Substance-induced mood disorder. PLAN: 1. We will discuss the mood stabilizers and other medications with the patient and probably will discontinue Depakote. 2. Continue with sertraline 25 mg by mouth every morning. 3. Continue with Seroquel 50 mg by mouth at bedtime.
[2016-04-25] MEDS: NICOTINE 21MG/24HR 1 EA TRANSDERMAL TD SCH ×2 (09:00→12:39)
[2016-04-25] MEDS: SERTRALINE HCL 25 MG TABLET PO SCH (09:00)
[2016-04-25 18:00] VITALS: BP 113/55
[2016-04-25] MEDS: traZODone 50 MG TAB PO SCH ×2 (22:15→23:58)
[2016-04-26] MEDS: hydrOXYzine 50 MG TAB PO PRN ×2 (01:19→20:33)
[2016-04-26] MEDS: SERTRALINE HCL 25 MG TABLET PO SCH ×2 (09:00→09:56)
[2016-04-26] MEDS: NICOTINE 21MG/24HR 1 EA TRANSDERMAL TD SCH (09:59)
[2016-04-26 18:00] VITALS: BP 156/75
[2016-04-26] MEDS: traZODone 50 MG TAB PO SCH (22:49)
[2016-04-27 06:37] VITALS: BP 139/69
[2016-04-27 07:35] LABS: ALBUMIN 3.9 GM/DL (3.2-5.2); ALBUMIN/GLOBULIN RATIO 1.39 (1.00-1.93); ALKALINE PHOSPHATASE 78 U/L (45-117); ALT/SGPT 100 U/L (12-78); ANION GAP 8 MEQ/L (8-16); AST/SGOT 33 U/L (15-37); BILIRUBIN,TOTAL 0.3 MG/DL (0.2-1.0); BLOOD UREA NITROGEN 14 MG/DL (7-18); CALCIUM LEVEL 9.2 MG/DL (8.5-10.1); CARBON DIOXIDE LEVEL 29 MEQ/L (21-32); CHLORIDE LEVEL 108 MEQ/L (98-107); CREATININE FOR GFR 0.97 MG/DL (0.70-1.30); GLOMERULAR FILTRATION RATE > 60.0 (>60); GLUCOSE, FASTING 99 MG/DL (70-105); POTASSIUM SERUM 4.2 MEQ/L (3.5-5.1); SODIUM LEVEL 145 MEQ/L (136-145); TOTAL PROTEIN 6.7 GM/DL (6.4-8.2)
[2016-04-27] MEDS: NICOTINE 21MG/24HR 1 EA TRANSDERMAL TD SCH (08:13)
[2016-04-27] MEDS: SERTRALINE HCL 25 MG TABLET PO SCH (08:13)
--- NOTE | 2016-04-27 14:27 | IPN ---
DATE OF SERVICE: 04/27/2016 A 26-year-old male admitted with diagnosis of depression and suicidal ideation, but then patient reported significant mood swings and other symptoms that are compatible with bipolar disorder. MEDICATIONS: - Zoloft 25 mg by mouth every morning - Seroquel 50 mg by mouth nightly SUBJECTIVE: "I hope I could use the Depakote." OBJECTIVE: Patient's Depakote had to be discontinued because his liver function tests were increased in the context of an ultrasound compatible with fatty liver and his liver enzymes have decreased since his Depakote has been discontinued. I discussed the plan with the patient and the fact that he is going to need a mood stabilizer. At this point, patient is denying suicidal ideation and reports some degree of mood swings and would like medication for moot stabilization. MENTAL STATUS EXAMINATION: Patient is dressed in [facility]. Patient has fair eye contact. Speech is normal in rate and volume. Articulation is quiet and spontaneous. Mood is depressed and anxious, but significantly improved from admission. Affect is congruent with mood. No delusions or hallucinations. Memory is fair. Patient is fully oriented. Associations are intact. Thinking is logical. Thought content is appropriate. Patient is denying suicidal or homicidal ideation. Insight and judgment is fair. ASSESSMENT: 1. Bipolar disorder, depressive episode. 2. Marijuana abuse. PLAN: 1. We discussed the fact that he did not tolerate Depakote and had to be discontinued and that his liver function is now going back to normal after this medication was stopped; therefore, we can identify that Depakote as the medication causing the problem. 2. Continue with sertraline 25 mg by mouth every morning. 3. Seroquel 50 mg by mouth nightly. 4. Will discharge the patient tomorrow if he continues improving. He prefers to be treated in the outpatient setting, so he will continue the treatment that is recommended by his outpatient psychiatrist. At this point, since the patient wants to be discharged, a mood stabilizer will be started.
[2016-04-27 18:29] VITALS: BP 140/71
[2016-04-27] MEDS: traZODone 50 MG TAB PO SCH (20:06)
[2016-04-27] MEDS: hydrOXYzine 50 MG TAB PO PRN (20:06)
[2016-04-28 06:34] VITALS: BP 110/61
[2016-04-28] MEDS: SERTRALINE HCL 25 MG TABLET PO SCH (08:13)
[2016-04-28] MEDS: NICOTINE 21MG/24HR 1 EA TRANSDERMAL TD SCH (08:13)
[2016-04-28] MEDS ORDERED: HYDRO50TAB PO (10:07)
[2016-04-28] MEDS ORDERED: SERT25TA85 PO (10:07)
[2016-04-28] MEDS ORDERED: TRAZO50TA PO (10:07)
[2016-04-28] MEDS ORDERED: NICO21PAT TD (11:03)
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
== END 2016-04-28 11:52 | disposition home or self-care (01) | DRG 753 ==
LOC: M ED 18:03 → M PSY 23:23
PROVIDERS: ADMIT Psychiatry & Neurology Psychiatry; ATTEND Psychiatry & Neurology Psychiatry
DX: F31.9 Bipolar disorder, unspecified (principal); F90.9 Attention-deficit hyperactivity disorder, unspecified type; F12.10 Cannabis abuse, uncomplicated; F17.200 Nicotine dependence, unspecified, uncomplicated

== ENCOUNTER → 2017-05-19 | Outpatient (REF) | payer OTHER ==
[2017-05-19 14:33] LABS: APPEARANCE, URINE CLEAR (CLEAR); BACTERIA, URINE AUTO NEGATIVE (NEGATIVE); BILIRUBIN, URINE AUTO NEGATIVE (NEGATIVE); BLOOD, URINE BLOOD NEGATIVE (NEGATIVE); COLOR, URINE YELLOW (YELLOW); GLUCOSE, URINE (UA) AUTO NEGATIVE (NEGATIVE); KETONE, URINE AUTO NEGATIVE (NEGATIVE); LEUKOCYTE ESTERASE, URINE AUTO NEGATIVE (NEGATIVE); MUCUS, URINE SMALL (NEGATIVE); NITRITE, URINE AUTO NEGATIVE (NEGATIVE); PROTEIN, URINE AUTO NEGATIVE (NEGATIVE); RBC, URINE AUTO 0 /HPF (0-3); SPECIFIC GRAVITY URINE AUTO 1.017 (1.002-1.035); SQUAMOUS EPITHELIAL CELL UR AU 0 /HPF (0-6); UROBILINOGEN, URINE AUTO 0.2 mg/dL (0.0-2.0); WBC, URINE AUTO 0 /HPF (0-3)
[2017-05-19 16:53] LABS: CHLAMYDIA DNA AMPLIFICATION NEGATIVE (NEGATIVE); GC DNA AMPLIFICATION NEGATIVE (NEGATIVE)
== END ==
LOC: M SMT 13:32
DX: N50.82 Scrotal pain (principal); R82.90 Unspecified abnormal findings in urine
CPT/HCPCS: 81001

== ENCOUNTER 2019-03-23 09:31 | Inpatient (IN) | payer OTHER ==
[~2019-03-23] VITALS: Ht 172.7 cm; Wt 94.1 kg
[~2019-03-23 09:31] MED LIST: CELE20TA PO; HYDR1TAB33 PO; NICO21PAT TD; SERT25TA85 PO; TRAZ1TAB10 PO; VITA1CHW10 PO
[2019-03-23] MEDS ORDERED: PROZ20CA11 PO (09:40)
[2019-03-23 10:07] LABS: HEMATOCRIT 51.6 % (42.0-52.0); HEMOGLOBIN 16.6 g/dl (13.5-17.5); MEAN CORPUSCULAR HEMOGLOBIN 27.6 pg (27.0-33.0); MEAN CORPUSCULAR HGB CONC 32.2 g/dl (32.0-36.5); MEAN CORPUSCULAR VOLUME 85.9 fl (80.0-96.0); PLATELET COUNT, AUTOMATED 397 10^3/uL (150-450); RED BLOOD COUNT 6.01 10^6/uL (4.30-6.10); WHITE BLOOD COUNT 10.8 10^3/uL (4.0-10.0)
[2019-03-23 10:42] LABS: ACETAMINOPHEN LEVEL < 2.0 UG/ML (10.0-30.0); ALBUMIN 4.3 GM/DL (3.2-5.2); ALT/SGPT 33 U/L (12-78); AMPHETAMINES LEVEL URINE NEGATIVE (NEGATIVE); BARBITURATES URINE NEGATIVE (NEGATIVE); BENZODIAZEPINES URINE NEGATIVE (NEGATIVE); BILIRUBIN,DIRECT 0.2 MG/DL (0.0-0.2); BILIRUBIN,TOTAL 0.6 MG/DL (0.2-1.0); BLOOD UREA NITROGEN 14 MG/DL (7-18); CALCIUM LEVEL 9.2 MG/DL (8.5-10.1); CANNABINOIDS URINE POSITIVE (NEGATIVE); CARBON DIOXIDE LEVEL 27 MEQ/L (21-32); CHLORIDE LEVEL 105 MEQ/L (98-107); COCAINE METABOLITE URINE NEGATIVE (NEGATIVE); CREATININE FOR GFR 1.24 MG/DL (0.70-1.30); ETHYL ALCOHOL (ETHANOL) < 0.003 % (0.000-0.010); GLOMERULAR FILTRATION RATE > 60.0 (>60); GLUCOSE, FASTING 131 MG/DL (70-100); METHADONE URINE NEGATIVE (NEGATIVE); OPIATES URINE NEGATIVE (NEGATIVE); PHENCYCLIDINE URINE NEGATIVE (NEGATIVE); POTASSIUM SERUM 4.3 MEQ/L (3.5-5.1); SALICYLATE LEVEL < 1.7 MG/DL (5.0-30.0); SODIUM LEVEL 139 MEQ/L (136-145); THYROID STIMULATING HORMONE 0.753 uIU/ML (0.358-3.740); TOTAL PROTEIN 8.1 GM/DL (6.4-8.2)
[2019-03-23] MEDS ORDERED: IBUPROFEN 400 MG TAB PO PRN (12:30)
[2019-03-23] MEDS ORDERED: OLANZapine ORAL DISINTEGRATING TAB 5MG PO PRN (12:30)
[2019-03-23] MEDS ORDERED: MOM 30ML SUSPENSION UDC PO PRN (12:30)
[2019-03-23] MEDS ORDERED: ACETAMINOPHEN TAB 650MG DOSE (2X325MG) PO PRN (12:30)
[2019-03-23 13:50] VITALS: BP 128/70
[2019-03-23 18:00] VITALS: BP 110/57
[2019-03-23] MEDS: traZODone 50 MG TAB PO PRN (21:11)
[2019-03-24 06:31] VITALS: BP 140/58
[2019-03-24] MEDS: FLUoxetine 20 MG CAP PO SCH (08:16)
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
[2019-03-24] MEDS ORDERED: hydrOXYzine 25 MG TAB PO PRN (13:00)
[2019-03-24 18:00] VITALS: BP 144/63
--- NOTE | 2019-03-24 20:11 | CR.PDOC ---
General Date of Consultation: Mar 24, 2019 Consultation REASON FOR CONSULTATION/CHIEF COMPLAINT: Physical evaluation HISTORY OF PRESENT ILLNESS: Patient is 29 years old male with past medical history of anxiety, depression presented to the hospital with suicidal ideation. During my interview patient complains of polyuria. Patient denies fever, chills, nausea, chest pain, diarrhea ALLERGIES: Please see below. HOME MEDICATIONS: Please see below. PAST MEDICAL HISTORY: Depression, anxiety PAST SURGICAL HISTORY: none FAMILY HISTORY: Father: hiv Mother:morbid obesity, diabetes SOCIAL HISTORY: Marital status and/or living arrangements: Tobacco use:pack a day ETOH: socially Illicit drug use: marihuana REVIEW OF SYSTEMS: 10 point review system negative except listed above PHYSICAL EXAMINATION: VITAL SIGNS: Please see below. GENERAL APPEARANCE: NAD HEENT: PERRLA, EOMI RESPIRATORY: CTA CARDIOVASCULAR: S1-S2 ABDOMEN: Nontender nondistended EXTREMITIES: No swelling NEUROLOGICAL: Cranial nerves from 2-12 intact LABORATORY DATA: Please see below. ASSESSMENT/PLAN: Patient does not have any acute diseases besides of his psychiatric diseases. I will check HbA1c and BMP Previous glucose level was elevated there is concern for diabetes, also given his polyuria symptoms Vital Signs/I&O Vital Signs Date Time Temp Pulse Resp B/P (MAP) Pulse Ox O2 Delivery O2 Flow Rate FiO2 03/24/19 18:00 97.9 64 16 144/63 (90) 03/24/19 08:33 Room Air 03/23/19 14:45 100 Allergies Coded Allergies: No Known Allergies (Unverified , 04/20/16) Home Medications Scheduled Fluoxetine HCl (Prozac) 20 Mg Capsule, 20 MG PO DAILY, (Reported) JOHAN WARNER DO Mar 24, 2019 20:11
[2019-03-24 20:52] LABS: HEMOGLOBIN A1c 5.6 %
[2019-03-24] MEDS: traZODone 50 MG TAB PO PRN (21:43)
[2019-03-25 06:43] VITALS: BP 125/62
[2019-03-25 08:09] LABS: BLOOD UREA NITROGEN 15 MG/DL (7-18); CALCIUM LEVEL 8.8 MG/DL (8.5-10.1); CARBON DIOXIDE LEVEL 29 MEQ/L (21-32); CHLORIDE LEVEL 109 MEQ/L (98-107); CREATININE FOR GFR 1.19 MG/DL (0.70-1.30); GLOMERULAR FILTRATION RATE > 60.0 (>60); GLUCOSE, FASTING 99 MG/DL (70-100); POTASSIUM SERUM 4.5 MEQ/L (3.5-5.1); SODIUM LEVEL 143 MEQ/L (136-145)
[2019-03-25] MEDS: FLUoxetine 20 MG CAP PO SCH (08:15)
[2019-03-25 15:55] VITALS: BP 145/63
--- NOTE | 2019-03-25 20:49 | MHIPN ---
DATE: 03/25/2019 The patient today states, "I am feeling better." He says that he was tired because he had not been sleeping as well since his Geodon was discontinued. He believes the Geodon was causing him side effects that were making him feel worse and making him feel more depressed. He states that he is not feeling suicidal now. MENTAL STATUS EXAMINATION: The patient is alert and oriented times three. He is pleasant, cooperative, verbally spontaneous. Eye contact is good. There is no formal thought disorder noted. He says his mood is "better today." Affect is full range and appropriate. He is not psychotic, suicidal or homicidal. Concentration is fair. Memory intact. Insight and judgment good. DIAGNOSES: 1. Major depressive disorder. 2. Adjustment disorder with depressed mood. 3. Anxiety disorder, unspecified. TREATMENT PLAN: At this point, we will continue to monitor the patient for continued elevation and stabilization of his mood and for continued resolution of suicidal ideations.
[2019-03-25] MEDS: traZODone 50 MG TAB PO PRN (21:51)
[2019-03-26 06:42] VITALS: BP 119/59
[2019-03-26] MEDS: FLUoxetine 20 MG CAP PO SCH (08:15)
[2019-03-26 15:50] VITALS: BP 117/71
--- NOTE | 2019-03-26 19:46 | MHIPN ---
DATE: 03/26/2019 The patient today states that he is doing "pretty good." He says that he still not sleep good last night and so we will try to increase his trazodone tonight. He is not suicidal. MENTAL STATUS EXAMINATION: He is alert and oriented times three. He is pleasant, cooperative, verbally spontaneous. Eye contact is fairly good. There is no formal though disorder noted. Mood is good. Affect is appropriate to mood. He is not psychotic, suicidal or homicidal. Concentration is fair. Memory intact. Insight and judgment fair. DIAGNOSES: 1. Major depressive disorder. 2. Adjustment disorder. 3. Unspecified anxiety disorder. TREATMENT PLAN: We will continue to monitor the patient for continued elevation and stabilization of his mood and resolution of suicidal ideations.
[2019-03-26] MEDS: traZODone 50 MG TAB PO PRN (22:29)
[2019-03-27 06:22] VITALS: BP 128/64
[2019-03-27] MEDS: FLUoxetine 20 MG CAP PO SCH (08:12)
[2019-03-27] MEDS ORDERED: HYDR-3363 PO (13:32)
[2019-03-27] MEDS ORDERED: PROZ20CA11 PO (13:32)
[2019-03-27] MEDS ORDERED: TRAZ-252 PO (13:32)
--- NOTE | 2019-03-27 13:34 | MHDSPDOC ---
[facility] Discharge Summary Discharge Summary DATE OF ADMISSION: Mar 23, 2019 at 12:29 DATE OF DISCHARGE:03/27/19 Discharge MRN: N/[id number] Date of : N/A Date of Service: 03/27/2019 Diagnoses Adjustment disorder with disruption of mood and conduct. History of Present Illness The patient, a 29-year-old man who had presented with multiple psychosocial stressors and different life changes due to a recent breakup with reported symptoms of depression, is admitted out of an abundance of caution. He had reported he had been placed on Geodon due to bad side effects and recently placed on Prozac, making him feel "a hundred times worse." He had denied any overt suicidality but had reported hopelessness upon presentation. Consultants Involved Hospitalist/PCP screening Treatment and Progress On The Unit The patient had been admitted to the inpatient unit where he was subsequently resumed on his home medications with little alteration, as he reported that the Geodon's effects were still lingering and that he was still feeling quite upset about the multiple psychosocial stressors. Over the weekend of observation, the patient does quite well where his hopelessness resolves, his depression improves, he had become social and amenable on the unit with a normal mental status exam, improved insight, and no concerning side effects, further suggesting a bad medication reaction to Geodon. On the day of discharge, he requests to go, declines further voluntary admission, and does not meet involuntary criteria and then was discharged in good neetu. Discharge Assessment The patient, a 29-year-old man with a history of likely adjustment, presents after multiple stressors including a bad medication side effect that made him feel hopeless about his mental health. He was admitted out of an abundance of caution with no mention of overt suicidality in [facility]. After observation on a low dose of Prozac and supportive environment, he does quite well further suggesting that he likely has an adjustment disorder at this time with anxiety or disruption of conduct, which is likely to improve with social/psychological interventions more so than medications. On the day of discharge, he denies any suicidal or homicidal ideation, has good insight, normal mental status exam, cooperative with discharge, and thus in my opinion does not meet involuntary criteria and declines further voluntary, and is discharged in good neetu. Mental Status Examination General: Well dressed with good hygiene Speech: Spontaneous and fluid Thought processes: Linear and logical MSK: Smooth and coordinated gait, no signs of tremors or involuntary orofacial movements Thought content: Future orientated Abstract reasoning, and computation: Intact Description of associations: Intact Description of abnormal or psychotic thoughts: Denies any suicidal or homicidal ideation. Denies any auditory or visual hallucinations. Does not appear to be responding to internal stimuli. Does not appear to be endorsing any bizarre or paranoid ideation. Judgment: fair Insight: fair Orientation: Alert and orientated 3 Cognition: Grossly normal Recent and remote memory: Intact Attention span and concentration: Intact Fund of knowledge: Adequate Mood: "okay" Affect: Euthymic with a full range Follow Up The social work team worked during the predischarge meeting in order to evaluate for further issues of lethality address them fully before discharge. They worked on safety planning with the patient's family members in order to ensure that the patient will have a safe and effective discharge. Time Spent The amount of time spent in the coordination of care for this patient was approximately 60 minutes. Wednesday Vital Signs/I&Os Vital Signs Date Time Temp Pulse Resp B/P (MAP) Pulse Ox O2 Delivery O2 Flow Rate FiO2 03/27/19 06:22 98.1 50 18 128/64 (85) 03/26/19 10:35 Room Air 03/23/19 14:45 100 Medications Scheduled Fluoxetine HCl (Prozac) 20 Mg Capsule, 20 MG PO DAILY for mood, #10 Scheduled PRN Hydroxyzine HCl (Hydroxyzine HCl) 25 Mg Tablet, 25 MG PO Q6HP PRN for ANXIETY, #30 Trazodone HCl (Trazodone HCl) 50 Mg Tablet, 50 MG PO QHSP PRN for INSOMNIA, #10 Allergies Coded Allergies: No Known Allergies (Unverified , 04/20/16) LUCA SILVA DO Mar 27, 2019 13:34
== END 2019-03-27 16:15 | disposition home or self-care (01) | DRG 754 ==
LOC: M ED 09:31 → M ED INP 12:29 → M PSY 14:50
PROVIDERS: ADMIT Psychiatry & Neurology Psychiatry; ATTEND Psychiatry & Neurology Psychiatry
DX: F43.21 Adjustment disorder with depressed mood (principal); F41.9 Anxiety disorder, unspecified

== ENCOUNTER → 2023-01-08 | Outpatient (REF) | payer OTHER ==
[~2023-01-08] MED LIST changes: +HYDR-3363 PO; +LEXA1TAB PO; +PROZ20CA11 PO; +TRAZ-252 PO
[2023-01-08 17:59] LABS: APPEARANCE, URINE HAZY (CLEAR); BACTERIA, URINE AUTO NEGATIVE (NEGATIVE); BILIRUBIN, URINE AUTO NEGATIVE (NEGATIVE); BLOOD, URINE BLOOD 1+ (NEGATIVE); CALCIUM OXALATE CRYSTALS SMALL; COLOR, URINE AMBER (YELLOW); GLUCOSE, URINE (UA) AUTO NEGATIVE (NEGATIVE); KETONE, URINE AUTO TRACE mg/dL (NEGATIVE); LEUKOCYTE ESTERASE, URINE AUTO NEGATIVE (NEGATIVE); MUCUS, URINE SMALL (NEGATIVE); NITRITE, URINE AUTO NEGATIVE (NEGATIVE); PROTEIN, URINE AUTO 1+ mg/dL (NEGATIVE); RBC, URINE AUTO 9 /HPF (0-3); SQUAMOUS EPITHELIAL CELL UR AU 0 /HPF (0-6); WBC, URINE AUTO 1 /HPF (0-3)
== END ==
LOC: M LABSMT 14:53
PROVIDERS: ATTEND Urology
DX: N41.9 Inflammatory disease of prostate, unspecified (principal)

== ENCOUNTER → 2023-02-19 | Outpatient (REF) | payer OTHER ==
[2023-02-19 19:03] LABS: AMORPHOUS SEDIMENT SMALL (NEGATIVE); APPEARANCE, URINE TURBID (CLEAR); BACTERIA, URINE AUTO NEGATIVE (NEGATIVE); BILIRUBIN, URINE AUTO NEGATIVE (NEGATIVE); BLOOD, URINE BLOOD NEGATIVE (NEGATIVE); COLOR, URINE YELLOW (YELLOW); GLUCOSE, URINE (UA) AUTO NEGATIVE (NEGATIVE); KETONE, URINE AUTO NEGATIVE (NEGATIVE); LEUKOCYTE ESTERASE, URINE AUTO NEGATIVE (NEGATIVE); NITRITE, URINE AUTO NEGATIVE (NEGATIVE); PROTEIN, URINE AUTO 1+ mg/dL (NEGATIVE); RBC, URINE AUTO 0 /HPF (0-3); SPECIFIC GRAVITY URINE AUTO 1.031 (1.002-1.035); SQUAMOUS EPITHELIAL CELL UR AU 0 /HPF (0-6); UROBILINOGEN, URINE AUTO 0.2 mg/dL (0.0-2.0); WBC, URINE AUTO 2 /HPF (0-3)
== END ==
LOC: M SMT 16:50
PROVIDERS: ATTEND Urology
DX: N41.9 Inflammatory disease of prostate, unspecified (principal)

== ENCOUNTER 2024-02-07 11:42 | Inpatient (IN) | payer BC, OTHER ==
[~2024-02-07] VITALS: Ht 172.7 cm; Wt 100.6 kg
[2024-02-07 12:30] LABS: HEMATOCRIT 50.6 % (42.0-52.0); HEMOGLOBIN 16.9 g/dl (13.5-17.5); MEAN CORPUSCULAR HEMOGLOBIN 28.7 pg (27.0-33.0); MEAN CORPUSCULAR HGB CONC 33.4 g/dl (32.0-36.5); MEAN CORPUSCULAR VOLUME 86.1 fl (80.0-96.0); PLATELET COUNT, AUTOMATED 409 10^3/uL (150-450); RED BLOOD COUNT 5.88 10^6/uL (4.30-6.10); WHITE BLOOD COUNT 9.4 10^3/uL (4.0-10.0)
[2024-02-07 12:54] LABS: ETHYL ALCOHOL (ETHANOL) < 0.003 % (0.000-0.010)
[2024-02-07 12:55] LABS: ALBUMIN 4.6 G/DL (3.2-5.2); ALKALINE PHOSPHATASE 86 U/L (40-129); ALT/SGPT 96 U/L (7.0-40); AST/SGOT 47 U/L (<34); BILIRUBIN,DIRECT 0.3 MG/DL (<0.4); BILIRUBIN,TOTAL 0.7 MG/DL (0.3-1.2); BLOOD UREA NITROGEN 14 MG/DL (9-23); CALCIUM LEVEL 10.6 MG/DL (8.5-10.1); CARBON DIOXIDE LEVEL 24 MMOL/L (20-31); CHLORIDE LEVEL 107 MMOL/L (98-107); CREATININE FOR GFR 1.03 MG/DL (0.70-1.30); GLOMERULAR FILTRATION RATE > 60.0 (>60); GLUCOSE, FASTING 96 MG/DL (60-100); POTASSIUM SERUM 4.1 MMOL/L (3.5-5.1); SALICYLATE LEVEL < 3.0 MG/DL (<30); SODIUM LEVEL 139 MMOL/L (136-145); TOTAL PROTEIN 8.4 G/DL (5.7-8.2)
[2024-02-07 12:57] LABS: THYROID STIMULATING HORMONE 0.571 uIU/ML (0.55-4.78)
[2024-02-07 13:03] LABS: AMPHETAMINES LEVEL URINE NEGATIVE (NEGATIVE); BARBITURATES URINE NEGATIVE (NEGATIVE)
[2024-02-07 13:04] LABS: BENZODIAZEPINES URINE NEGATIVE (NEGATIVE); COCAINE METABOLITE URINE NEGATIVE (NEGATIVE); METHADONE URINE NEGATIVE (NEGATIVE); OPIATES URINE NEGATIVE (NEGATIVE); PHENCYCLIDINE URINE NEGATIVE (NEGATIVE)
[2024-02-07 13:06] LABS: CANNABINOIDS URINE POSITIVE (NEGATIVE)
[2024-02-07] MEDS ORDERED: HOME MED LIST COMPLETE! XX SCH (13:35)
[2024-02-07] MEDS ORDERED: MOM 30ML SUSPENSION UDC PO PRN (14:10)
[2024-02-07] MEDS ORDERED: ACETAMINOPHEN 325 MG TAB PO PRN (14:10)
[2024-02-07] MEDS ORDERED: IBUPROFEN 400MG TAB PO PRN (14:10)
[2024-02-07] MEDS ORDERED: MAALOX 30 ML SUSP *UDC PO PRN (14:10)
[2024-02-07] MEDS: hydrOXYzine 50 MG TAB PO PRN (15:11)
[2024-02-07 16:13] VITALS: TEMP 98.2; O2SAT 97
[2024-02-07 17:29] VITALS: BP 138/82; TEMP 98.2; O2SAT 97
[2024-02-08] MEDS: OLANZapine 5 MG TAB PO SCH (09:00)
[2024-02-08 15:29] VITALS: BP 151/74; TEMP 97.3; O2SAT 98
[2024-02-09 09:00] LABS: CHOLESTEROL RISK RATIO 5.24 (<5); HDL CHOLESTEROL 35.1 MG/DL (>40); LDL CHOLESTEROL 129.9 MG/DL (<100); NON-HDL-C 148.9 MG/DL
[2024-02-09] MEDS: risperiDONE 2 MG TAB PO ONE (09:40)
[2024-02-10 06:35] VITALS: BP 161/88; TEMP 97; O2SAT 97
[2024-02-10] MEDS: RISPERIDONE 1 MG TAB PO SCH (08:44)
[2024-02-10 14:58] VITALS: BP 156/88; TEMP 98.1; O2SAT 97
[2024-02-10] MEDS ORDERED: RISPERIDONE 1 MG TAB PO SCH (21:00)
[2024-02-10] MEDS: traZODone 50 MG TAB PO PRN (22:11)
[2024-02-11 06:02] LABS: BLOOD UREA NITROGEN 14 MG/DL (9-23); CALCIUM LEVEL 9.6 MG/DL (8.5-10.1); CARBON DIOXIDE LEVEL 25 MMOL/L (20-31); CHLORIDE LEVEL 107 MMOL/L (98-107); CREATININE FOR GFR 1.11 MG/DL (0.70-1.30); GLOMERULAR FILTRATION RATE > 60.0 (>60); GLUCOSE, FASTING 108 MG/DL (60-100); SODIUM LEVEL 140 MMOL/L (136-145)
[2024-02-11 06:39] VITALS: BP 126/72; TEMP 97.5; O2SAT 97
[2024-02-11 09:03] LABS: ALKALINE PHOSPHATASE 75 U/L (40-129); ALT/SGPT 85 U/L (7.0-40); AST/SGOT 37 U/L (<34); BILIRUBIN,DIRECT 0.2 MG/DL (<0.4); BILIRUBIN,TOTAL 0.5 MG/DL (0.3-1.2); TOTAL PROTEIN 7.4 G/DL (5.7-8.2)
[2024-02-11 16:35] VITALS: BP 144/81; TEMP 98.3; O2SAT 98
[2024-02-11] MEDS: diphenhydrAMINE 25MG CAP PO PRN (22:02)
[2024-02-12 06:20] VITALS: BP 136/80; TEMP 96.9; O2SAT 96
[2024-02-12 15:25] VITALS: BP 124/75; TEMP 97.8; O2SAT 96
[2024-02-13 06:25] VITALS: BP 139/80; TEMP 97.7; O2SAT 98
[2024-02-13 12:14] LABS: HIV 1&2 SCREEN NEGATIVE (NEGATIVE)
[2024-02-13 13:27] LABS: Trichomonas vaginalis (AMP) NOT DETECTED (NEGATIVE)
[2024-02-13 13:50] LABS: GC DNA AMPLIFICATION NEGATIVE (NEGATIVE)
[2024-02-13] MEDS: SODIUM CHLORIDE NASAL 0.65% SPRAY BTL (OCEAN) PRN (15:57)
[2024-02-13 16:08] VITALS: BP 129/77; TEMP 97.6; O2SAT 96
[2024-02-14 06:19] VITALS: BP 162/83; TEMP 97.5; O2SAT 96
[2024-02-14] MEDS ORDERED: RAMELTEON 8 MG TAB (ROZEREM) PO PRN (09:45)
[2024-02-14] MEDS ORDERED: OLANZapine 5 MG TAB PO PRN (09:45)
[2024-02-14] MEDS ORDERED: RISP1TAB42 PO (10:15)
[2024-02-14] MEDS ORDERED: TRAZ-252 PO (10:15)
== END 2024-02-14 13:27 | disposition home or self-care (01) | DRG 751 ==
LOC: M ED 11:42 → M ED INP 14:07 → M PSY 16:02
PROVIDERS: ADMIT Psychiatry & Neurology Psychiatry; ATTEND Psychiatry & Neurology Psychiatry
DX: F29 Unspecified psychosis not due to a substance or known physiological condition (principal); F17.200 Nicotine dependence, unspecified, uncomplicated; F12.90 Cannabis use, unspecified, uncomplicated; F60.89 Other specific personality disorders; F41.1 Generalized anxiety disorder; F43.10 Post-traumatic stress disorder, unspecified; F32.9 Major depressive disorder, single episode, unspecified; F31.9 Bipolar disorder, unspecified; R45.851 Suicidal ideations; R45.850 Homicidal ideations; K76.0 Fatty (change of) liver, not elsewhere classified; E83.52 Hypercalcemia; E86.0 Dehydration

== ENCOUNTER 2024-02-20 01:04 | Inpatient (IN) | payer BC ==
[~2024-02-20] VITALS: Ht 175.3 cm; Wt 98.9 kg
[~2024-02-20 01:04] MED LIST changes: +RISP1TAB42 PO
[2024-02-20] MEDS ORDERED: MAALOX 30 ML SUSP *UDC PO PRN (03:25)
[2024-02-20] MEDS ORDERED: MOM 30ML SUSPENSION UDC PO PRN (03:25)
[2024-02-20 04:16] VITALS: BP 124/65; TEMP 97; O2SAT 100
[2024-02-20] MEDS: lamoTRIgine 25MG TAB PO SCH (10:40)
[2024-02-20] MEDS: RISPERIDONE 1 MG TAB PO SCH (10:41)
[2024-02-20 15:09] VITALS: BP 137/78; TEMP 97.8; O2SAT 97
[2024-02-20 15:10] LABS: HEMATOCRIT 44.4 % (42.0-52.0); HEMOGLOBIN 15.2 g/dl (13.5-17.5); MEAN CORPUSCULAR HGB CONC 34.2 g/dl (32.0-36.5); MEAN CORPUSCULAR VOLUME 84.7 fl (80.0-96.0); PLATELET COUNT, AUTOMATED 381 10^3/uL (150-450); RED BLOOD COUNT 5.24 10^6/uL (4.30-6.10); WHITE BLOOD COUNT 8.9 10^3/uL (4.0-10.0)
[2024-02-20 15:42] LABS: ALKALINE PHOSPHATASE 76 U/L (40-129); ALT/SGPT 92 U/L (7.0-40); AST/SGOT 55 U/L (<34); BILIRUBIN,DIRECT 0.1 MG/DL (<0.4); BILIRUBIN,TOTAL 0.4 MG/DL (0.3-1.2); BLOOD UREA NITROGEN 13 MG/DL (9-23); CALCIUM LEVEL 9.2 MG/DL (8.5-10.1); CARBON DIOXIDE LEVEL 25 MMOL/L (20-31); CHLORIDE LEVEL 105 MMOL/L (98-107); CREATININE FOR GFR 1.15 MG/DL (0.70-1.30); GLOMERULAR FILTRATION RATE > 60.0 (>60); GLUCOSE, FASTING 92 MG/DL (60-100); POTASSIUM SERUM 4.2 MMOL/L (3.5-5.1); SODIUM LEVEL 140 MMOL/L (136-145)
[2024-02-20 15:43] LABS: FERRITIN 174.2 NG/ML (10.5-307.3)
[2024-02-20] MEDS: diphenhydrAMINE 25MG CAP PO PRN (15:44)
[2024-02-20 15:55] LABS: HEPATITIS B SURFACE ANTIGEN NEGATIVE (NEGATIVE)
[2024-02-20 16:17] LABS: HEPATITIS B CORE ANTIBODY IGM NEGATIVE (NEGATIVE); HEPATITIS C VIRUS ABY INDEX 0.16 INDEX (<0.8)
[2024-02-20] MEDS ORDERED: RISP-105 PO (16:43)
[2024-02-20] MEDS ORDERED: TRAZ-252 PO (16:43)
[2024-02-20] MEDS: OLANZapine ORAL DISINTEGRATING TAB 5MG PO PRN (16:43)
[2024-02-20] MEDS ORDERED: HYDR50TA70 PO (16:43)
[2024-02-20] MEDS ORDERED: HOME MED LIST COMPLETE! XX SCH (16:45)
[2024-02-20] MEDS: traZODone 50 MG TAB PO PRN (20:02)
[2024-02-20] MEDS: ATOMOXETINE HCL 40 MG CAP (STRATTERA) PO SCH (20:03)
[2024-02-20] MEDS: LORazepam 1 MG TAB PO PRN (23:16)
[2024-02-21 06:33] VITALS: BP 130/73; TEMP 97.4; O2SAT 98
[2024-02-21] MEDS: risperiDONE 2 MG TAB PO SCH (09:07)
[2024-02-21] MEDS: LORazepam 2 MG/ML 1ML VIAL IM ONE (14:25)
[2024-02-21] MEDS: diphenhydrAMINE 50MG/ML VIAL IM ONE (14:25)
[2024-02-21] MEDS: HALOPERIDOL LACTATE 5MG/ML VIAL IM ONE (14:25)
[2024-02-21 14:50] VITALS: BP 128/78; TEMP 97.6; O2SAT 95
[2024-02-21 15:05] VITALS: BP 149/67; TEMP 97.3; O2SAT 97
[2024-02-21 15:20] VITALS: BP 125/69; TEMP 97.5; O2SAT 96
[2024-02-21] MEDS: SODIUM CHLORIDE NASAL 0.65% SPRAY BTL (OCEAN) PRN (17:42)
[2024-02-22 06:19] VITALS: BP 134/64; TEMP 97.9; O2SAT 97
[2024-02-22] MEDS: IBUPROFEN 400MG TAB PO PRN (13:20)
[2024-02-22 14:50] VITALS: BP 131/78; TEMP 97.8; O2SAT 99
[2024-02-23] MEDS: PALIPERIDONE PAL 234MG/1.5ML INJ (INVEGA)(FREE PSY INPT ONLY) IM ONE (10:49)
[2024-02-23] MEDS: ATOMOXETINE HCL 40 MG CAP (STRATTERA) PO SCH (11:45)
[2024-02-23 17:52] VITALS: BP 130/70; TEMP 97.6; O2SAT 98
[2024-02-24] MEDS: ACETAMINOPHEN 325 MG TAB PO PRN (06:33)
[2024-02-24 06:37] VITALS: BP 129/67; TEMP 97.7; O2SAT 97
[2024-02-24 18:39] VITALS: BP 150/86; TEMP 97.3; O2SAT 97
[2024-02-25] MEDS ORDERED: TRAZ-252 PO (07:05)
[2024-02-25] MEDS ORDERED: OLAN1TAB16 PO (07:05)
[2024-02-25] MEDS ORDERED: RISP2TAB32 PO (07:05)
[2024-02-25] MEDS ORDERED: HYDR50TA70 PO (07:05)
[2024-02-25] MEDS ORDERED: Sodium Chloride Nasal Spray (07:05)
[2024-02-25] MEDS ORDERED: LAMI25TA PO (07:05)
[2024-02-25] MEDS ORDERED: ATOM40CA9 PO (07:05)
[2024-02-25] MEDS ORDERED: NICO2GUM MT (07:09)
[2024-02-25] MEDS ORDERED: INVE234I IM (07:09)
[2024-02-25] MEDS ORDERED: INVE156I IM (07:09)
[2024-02-25] MEDS ORDERED: NICOTINE POLACRILEX 2 MG GUM PO PRN (07:10)
== END 2024-02-25 11:15 | disposition home or self-care (01) | DRG 753 ==
LOC: M ED 01:04 → M ED INP 03:25 → M PSY 04:16
PROVIDERS: ADMIT Psychiatry & Neurology Psychiatry; ATTEND Psychiatry & Neurology Psychiatry
DX: F31.9 Bipolar disorder, unspecified (principal); F43.9 Reaction to severe stress, unspecified; F60.9 Personality disorder, unspecified; F42.9 Obsessive-compulsive disorder, unspecified; M25.50 Pain in unspecified joint; R74.01 Elevation of levels of liver transaminase levels; K76.0 Fatty (change of) liver, not elsewhere classified; Z91.51 Personal history of suicidal behavior; F12.90 Cannabis use, unspecified, uncomplicated; Z79.899 Other long term (current) drug therapy; Z71.41 Alcohol abuse counseling and surveillance of alcoholic; Z71.51 Drug abuse counseling and surveillance of drug abuser; Z78.1 Physical restraint status

== ENCOUNTER 2025-01-24 17:21 | Inpatient (IN) | payer BC, OTHER, SELFPAY ==
[~2025-01-24] VITALS: Ht 170.2 cm; Wt 105.3 kg
[~2025-01-24 17:21] MED LIST changes: +ATOM40CA9 PO; +HYDR50TA70 PO; +INVE156I IM; +INVE234I IM; +LAMI25TA PO; +NICO2GUM MT; +OLAN1TAB16 PO; -PROZ20CA11 PO; +PROZ20CA12 PO; +RISP-105 PO; +RISP2TAB32 PO; +Sodium Chloride Nasal Spray
[2025-01-24] MEDS ORDERED: HOME MED LIST COMPLETE! XX SCH (19:30)
[2025-01-24] MEDS ORDERED: MOM 30 ML SUSPENSION UDC PO PRN (19:35)
[2025-01-24] MEDS ORDERED: MAALOX 30 ML SUSP *UDC PO PRN (19:35)
[2025-01-24] MEDS ORDERED: ACETAMINOPHEN 325 MG TAB PO PRN (19:35)
[2025-01-24] MEDS ORDERED: IBUPROFEN 400 MG TAB PO PRN (19:35)
[2025-01-24] MEDS ORDERED: HALOPERIDOL 5 MG TAB PO PRN (19:35)
[2025-01-25 06:35] VITALS: BP 129/68; TEMP 96.5; O2SAT 99
[2025-01-25] MEDS: risperiDONE 0.5 MG TAB PO SCH (09:00)
[2025-01-25] MEDS: traZODone 50 MG TAB PO PRN (20:16)
[2025-01-25] MEDS: lamoTRIgine 25 MG TAB PO SCH (20:16)
[2025-01-26] MEDS: LORazepam 1 MG TAB PO PRN (02:32)
[2025-01-26 15:56] VITALS: BP 140/63; TEMP 97.6; O2SAT 98
[2025-01-26] MEDS: RISPERIDONE 1 MG TAB PO SCH (20:06)
[2025-01-27 06:22] VITALS: BP 148/76; TEMP 97.4; O2SAT 99
[2025-01-27 15:51] VITALS: BP 147/73; TEMP 97.2; O2SAT 95
[2025-01-28 06:34] VITALS: BP 113/60; TEMP 97.7; O2SAT 98
[2025-01-28 18:45] VITALS: BP 147/69; TEMP 97; O2SAT 98
[2025-01-29 06:54] VITALS: BP 136/89; TEMP 97; O2SAT 98
[2025-01-29] MEDS ORDERED: RISP-105 PO (10:46)
[2025-01-29] MEDS ORDERED: TRAZ-252 PO (10:46)
[2025-01-29] MEDS ORDERED: LAMI25TA PO (10:46)
[2025-01-29] MEDS ORDERED: HYDR50TA70 PO (10:46)
== END 2025-01-29 15:27 | disposition home or self-care (01) | DRG 751 ==
LOC: M ED 17:21 → M ED INP 19:34 → M PSY 20:20
PROVIDERS: ADMIT Psychiatry & Neurology Neurology; ATTEND Psychiatry & Neurology Neurology
DX: F29 Unspecified psychosis not due to a substance or known physiological condition (principal); R45.850 Homicidal ideations; R45.851 Suicidal ideations; K76.0 Fatty (change of) liver, not elsewhere classified; F60.89 Other specific personality disorders; F43.10 Post-traumatic stress disorder, unspecified; F31.9 Bipolar disorder, unspecified; F60.3 Borderline personality disorder; K21.9 Gastro-esophageal reflux disease without esophagitis; J45.909 Unspecified asthma, uncomplicated; F12.259 Cannabis dependence with psychotic disorder, unspecified